=== PATIENT | female | born 1975 | race Caucasian/White ===

== ENCOUNTER → 2016-09-18 | Outpatient (CLI) | payer OTHER ==
[~2016-09-18] MED LIST: ALBU17AE3 IH; BENZ200C25 PO; CHOL4PAC16 PO; CITA20TA12 PO; DICY20TA33 PO; HYDR-34; HYDR30CR70 RC; INUL1TAB4 PO; L.AC1CAP6 PO; LOMOTIL; MECL25TA3 PO; MUSCLE RELAXER; ONDA4TAB8 PO; SCOP1PAT TD; WARF10TA PO; WARF7.5T PO; WRF5T
--- NOTE | 2016-09-18 17:53 | Diagnostic Imaging Report ---
EXAMINATION: Ultrasound pelvis DATE: September 18, 2016. INDICATION: 40-year-old female, lower abdominal pain. COMPARISON: CT February 20, 2009. TECHNIQUE: A sonogram of the pelvis was performed utilizing transabdominal and endovaginal approaches assessing toussaint-scale appearance, spectral Doppler analysis, and color Doppler flow. FINDINGS: The uterus measures 6.1 x 4.1 x 3.2 cm. No focal uterine masses are seen. The endometrium measures 0.7 cm in diameter. The right ovary measures 3.9 cm x 2.7 cm x 3.6 cm. The left ovary measures 3.1 cm x 2.9 cm x 2.7 cm. No adnexal lesion is seen. There is blood flow to both ovaries. No free pelvic fluid is demonstrated. IMPRESSION: 1. Unremarkable pelvic ultrasound. Dictated by: Dictated on workstation # [id number]
== END ==
LOC: RAD 16:50
PROVIDERS: ATTEND Nurse Practitioner Adult Health
DX: Z01.419 Encounter for gynecological examination (general) (routine) without abnormal findings (principal)
CPT/HCPCS: 76830; 76856

== ENCOUNTER → 2016-11-07 | Outpatient (CLI) | payer OTHER ==
--- NOTE | 2016-11-09 17:38 | Diagnostic Imaging Report ---
Bilateral screening mammogram The current study was also evaluated with a Computer Aided Detection (CAD) system. Indication: Screening. No current complaints stated on the questionnaire. COMPARISON: 11/24/15 Findings: The breasts are composed of scattered from densities. The there is no mass, architectural distortion or suspicious calcification. Allowing for technique and positional differences, no suspicious change is seen. IMPRESSION: No significant change. ACR BI-RADS Category 2: Benign findings. Result letter will be mailed to the patient. Note: At least 10% of breast cancer is not imaged by mammography. Dictated by: Dictated on workstation # [id number]
== END ==
LOC: RAD 13:25
PROVIDERS: ATTEND Nurse Practitioner Adult Health
DX: Z12.31 Encounter for screening mammogram for malignant neoplasm of breast (principal)
CPT/HCPCS: 77067

== ENCOUNTER 2017-01-21 21:24 | Emergency (ER) | payer OTHER ==
[~2017-01-21] VITALS: Ht 162.6 cm; Wt 108.9 kg
[2017-01-21] MEDS ORDERED: CLON0.1T PO (21:47)
[2017-01-21] MEDS ORDERED: NALT1TAB (21:47)
[2017-01-21] MEDS ORDERED: VERA120T6 (21:47)
[2017-01-21] MEDS ORDERED: KETOROLAC 30 MG/ML VIAL IVP STA (21:50)
[2017-01-21] MEDS ORDERED: NS IV 1000 ML 1,000 ML IV ONE (21:50)
--- NOTE | 2017-01-21 21:58 | ED Back Pain ---
General Chief Complaint: Back Problems Stated Complaint: AB PELVIC PAIN Nursing Triage Note: RIGHT FLANK/LOWER ABD. PAIN X1HR. VOMITTING X1. Nursing Sepsis Screen: No Definite Risk Source of Information: Patient, Family (daughter) Exam Limitations: No Limitations History of Present Illness Time Seen by Provider: 21:54 Initial Comments Patient uses EMS by private conveyance with chief complaint of right flank and back pain that started about 7:00 this evening. She says she feels that she has to have a bowel movement and goes urine but has hesitancy and difficulty. She feels that she can not pushes out. She did have one bowel movement earlier today. She has not taken anything for pain. 7 quite a bit of nausea. She's never had a kidney stone before. She is polycystic ovarian syndrome and endometriosis for which she is using the Depo-Provera shot. She is otherwise in state of good health try her 7:00 this evening. She is on warfarin for history of multiple PEs. Allergies and Home Medications Allergies Coded Allergies: No Known Drug Allergies (Verified , 02/21/09) Home Medications Cephalexin 500 Mg Capsule, 500 MG PO BID for 7 Days, #14 Ref 0 Prescribed by: DENISE URIARTE on 01/22/17 0124 Citalopram Hydrobromide 20 Mg Tablet, 20 MG PO DAILY, (Reported) Clonidine HCl 0.1 Mg Tablet, (Reported) Inulin/Chromium Picolinate 1 Each Tab.chew, 2 EACH PO BID, (Reported) L.acidoph & Paracasei,B.lactis 1 Each Capsule, 1 EACH PO DAILY, (Reported) Meclizine HCl 25 Mg Tablet, 1-2 TAB PO Q6H, #30 Prescribed by: CHRISTA WRIGHT on 09/11/151911 Naltrexone HCl/Bupropion HCl 1 Each Tablet.er, (Reported) Ondansetron 4 Mg Tab.rapdis, 4 MG PO Q4H, #10 Prescribed by: CHRISTA WRIGHT on 09/11/151909 Ondansetron 4 Mg Tab.rapdis, 4 MG PO Q4H PRN for NAUSEA/VOMITING-1ST LINE, #20 Ref 0 Prescribed by: DENISE URIARTE on 01/22/17 0131 Oxycodone HCl/Acetaminophen 1 Each Tablet, 1-2 EACH PO Q6H PRN for BREAKTHROUGH PAIN for 7 Days, #30 Ref 0 Prescribed by: DENISE URIARTE on 01/22/17 0124 Scopolamine 1 Each Patch.td72, 1 EACH TD Q72 HOURS, #3 Prescribed by: CHRISTA WIRGHT on 09/11/152 Tamsulosin HCl 0.4 Mg Cap, 0.4 MG PO HS for 7 Days, #7 Ref 0 Prescribed by: DENISE URIARTE on 01/22/17 0124 Verapamil HCl 120 Mg Tablet, (Reported) Warfarin Sodium 7.5 Mg Tablet, 7.5 MG PO UD, (Reported) Warfarin Sodium 10 Mg Tablet, 15 MG PO UD, (Reported) Constitutional: No chills, No diaphoresis EENTM: No ear pain, No eye pain Respiratory: No cough, No short of breath Cardiovascular: No chest pain, No palpitations Gastrointestinal: abdominal pain (RLQ), constipation, No diarrhea, nausea, vomiting Genitourinary: No discharge, dysuria : No (PCO S endometriosis) Musculoskeletal: see HPI, back pain, No joint pain Skin: No pruritus, No rash Psychiatric/Neurological: Denies Headache, Denies Numbness, Denies Paresthesia Past Wydotlq-Jquvai-Xxtafg Hx Patient Social History Alcohol Use: Denies Use Recreational Drug Use: No Smoking Status: Never a Smoker 2nd Hand Smoke Exposure: No Recent Foreign Travel: No Contact w/Someone Who Travel: No Recent Infectious Disease Expo: No Recent Hopitalizations: No Immunizations Up To Date Tetanus Booster (TDap): Unknown PED Vaccines UTD: Yes Seasonal Allergies Seasonal Allergies: Yes Surgeries History of Surgeries: Yes (ABDOMINOPLASTY; X 1) Surgeries: Adenoidectomy, Section, Tonsillectomy Respiratory History of Respiratory Disorde: Yes (P.E. 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 Genitourinary History of Genitourinary Disor: No Gastrointestinal History of Gastrointestinal Di: Yes Gastrointestinal Disorders: Irritable Bowel Musculoskeletal History of Musculoskeletal Dis: No Endocrine History of Endocrine Disorders: Yes (OBESITY) HEENT History of HEENT Disorders: No Cancer History of Cancer: No Psychosocial History of Psychiatric Problem: Yes Behavioral Health Disorders: Anxiety Integumentary History of Skin or Integumenta: No Blood Transfusions History of Blood Disorders: No Physical Exam Vital Signs Vital Sign - Last 12Hours 01/21/17 01/22/17 21:47 01:03 Temp 97.6 Pulse 70 Resp 24 B/P (MAP) 191/106 Pulse Ox 100 O2 Delivery Room Air FiO2 99 Capillary Refill : Less Than 3 Seconds General Appearance: WD/WN, Moderate Distress HEENT: PERRL/EOMI, Pharynx Normal Cardiovascular: Regular Rate, Rhythm, No Edema Respiratory: Lungs Clear, Normal Breath Sounds Peripheral Pulses: 2+ Dorsalis Pedis (R), 2+ Left Dors-Pedis (L) Gastrointestinal: Normal Bowel Sounds, No Organomegaly, No Pulsatile Mass, Non Tender, Soft Back: Normal Inspection, CVA Tenderness (R) Extremity: Normal Capillary Refill, No Pedal Edema Neurologic/Psychiatric: Alert, Oriented x3 Skin: Normal Color, Warm/Dry Progress/Results/Core Measures Results/Orders My Orders Orders - DENISE URIARTE Urine Bedside (01/21/17 21:50) Ct Abd/Pelvis Wo(Kidney Stone) (01/21/17 21:50) Abdomen/Kub 1view (01/21/17 21:50) Ketorolac Injection (Toradol Injection) (01/21/17 21:50) Saline Lock/Iv-Start (01/21/17 21:50) Ns Iv 1000 Ml (Sodium Chloride 0.9%) (01/21/17 21:50) Ondansetron Injection (Zofran Injectio (01/21/17 22:00) Fentanyl Injection (Sublimaze Injection (01/21/17 22:00) Fentanyl Injection (Sublimaze Injection (01/21/17 22:30) Ondansetron Injection (Zofran Injectio (01/21/17 22:30) Fentanyl Injection (Sublimaze Injection (01/21/17 23:30) Oxycodone/Acet 10/325mg Tablet (Percocet (01/21/17 23:45) Promethazine Tablet (Phenergan Tablet) (01/21/17 23:45) Alfuzosin Tablet (Uroxatral Tablet) (01/21/17 23:45) Ondansetron Injection (Zofran Injectio (01/22/17 00:15) Promethazine Injection (Phenergan Injec (01/22/17 00:15) Saline Lock/Iv-Start (01/22/17 00:15) Ns Iv 500 Ml (Sodium Chloride 0.9%) (01/22/17 00:15) Medications Given in ED Current Medications Medications Dose Ordered Sig/John Route Start Time Stop Time Status Last Admin Dose Admin Fentanyl Citrate 50 mcg ONCE ONCE IVP 01/21/17 22:00 01/21/17 22:01 DC 01/21/17 22:02 50 MCG Fentanyl Citrate 50 mcg ONCE ONCE IVP 01/21/17 22:30 01/21/17 22:31 DC 01/21/17 22:40 50 MCG Fentanyl Citrate 50 mcg ONCE ONCE IVP 01/21/17 23:30 01/21/17 23:31 DC 01/21/17 23:29 50 MCG Ondansetron HCl 4 mg ONCE ONCE IVP 01/21/17 22:00 01/21/17 22:01 DC 01/21/17 22:01 4 MG Ondansetron HCl 4 mg ONCE ONCE IVP 01/21/17 22:30 01/21/17 22:31 DC 01/21/17 22:25 4 MG Ondansetron HCl 8 mg ONCE ONCE IVP 01/22/17 00:15 01/22/17 00:17 DC 01/22/17 00:31 8 MG Oxycodone/ Acetaminophen 2 tab ONCE ONCE PO 01/21/17 23:45 01/21/17 23:46 DC 01/21/17 23:54 2 TAB Promethazine HCl 25 mg ONCE ONCE IVP 01/22/17 00:15 01/22/17 00:17 DC 01/22/17 00:31 25 MG Promethazine HCl 25 mg ONCE ONCE PO 01/21/17 23:45 01/21/17 23:46 DC 01/21/17 23:54 25 MG Sodium Chloride 500 ml @ 0 mls/hr Q0M ONCE IV 01/22/17 00:15 01/22/17 00:17 DC 01/22/17 00:30 0 MLS/HR Sodium Chloride 1,000 ml @ 0 mls/hr Q0M ONCE IV 01/21/17 21:50 01/21/17 21:55 DC 01/21/17 22:02 0 MLS/HR Vital Signs/I&O Vital Sign - Last 12Hours 01/21/17 01/21/17 01/22/17 01/22/17 21:47 22:02 01:03 01:31 Temp 97.6 97.6 97.1 97.9 Pulse 70 57 61 Resp 24 16 18 B/P (MAP) 191/106 133/69 Pulse Ox 100 99 O2 Delivery Room Air Room Air Room Air FiO2 99 Blood Pressure Mean: 134 Diagnostic Imaging Diagonstic Imaging: CT Plain Films/CT/US/NM/MRI: abdomen, pelvis Comments 3 mm stone in the right distal ureter vesicle junction versus a more dependent aspect of the urinary bladder with associated right mild hydroureter or nephrosis and minimal perinephric fat stranding. Incidentally there is some hyperdense material seen and small bowel of unknown significance. Her vitals lobe of the liver. Remaining solid organs are otherwise unremarkable and a normal appendix is seen. Postoperative changes suggested in the anterior abdominal wall on the left lower quadrant Reviewed: Reviewed by Me Departure Impression Impression: Primary Impression: Kidney stone Disposition: HOME, SELF-CARE Condition: Improved Departure-Patient Inst. Decision time for Depature: 01:19 Referrals: APRIL LOPEZ DO (PCP) Primary Care Physician JANE BAUTISTA (Family) Primary Care Physician Patient Instructions: Kidney Stones (DC) Add. Discharge Instructions: Drink lots of water. Caffeine is okay. Take one tablet of the tamsulosin/Flomax every night by mouth until you pass the stone. Take the antibiotics by mouth twice a day until you pass the stone. If you're having pain you can use Tylenol or ibuprofen and in addition you should use the Percocet 1-2 tablets every 6 hours as needed to control your pain. If you're having nausea you can take one tablet of the Zofran and place under your tongue allowed to dissolve every 4 hours as needed to control your nausea. If you're not able to pass the stone and catching in the strainer by Sunday you should call Dr. Wilkins , urologist at [phone]. Strain your urine every time you go to try and catch the stone. If you For the stone take it your doctor's office and they can test it find out what kind it is so that you can figure out how to avoid the stones in the future. It is not unusual to have some pain and pink colored urine for up to 2-3 days after passing the stone as you're ureters heal. While you're using opiates such as Percocet you should also take a laxative such as MiraLAX daily to keep herself regular. Do not drive or operate heavy machinery while under the influence of opiates. Do not combine opiates with alcohol. All discharge instructions reviewed with patient and/or family. Voiced understanding. Scripts Ondansetron (Zofran Odt) 4 Mg Tab.rapdis 4 MG PO Q4H Y for NAUSEA/VOMITING-1ST LINE, #20 TAB 0 Refills Prov: DENISE URIARTE 01/22/17 Oxycodone HCl/Acetaminophen (Percocet 10-325 mg Tablet) 1 Each Tablet 1-2 EACH PO Q6H Y for BREAKTHROUGH PAIN for 7 Days, #30 TAB 0 Refills Prov: DENISE URIARTE 01/22/17 Tamsulosin HCl (Flomax) 0.4 Mg Cap 0.4 MG PO HS for 7 Days, #7 CAP 0 Refills Prov: DENISE URIARTE 01/22/17 Cephalexin (Keflex) 500 Mg Capsule 500 MG PO BID for 7 Days, #14 CAP 0 Refills Prov: DENISE URIARTE 01/22/17 Copy Copies To 1: APRIL LOPEZ TITUS J Jan 21, 2017 21:57
[2017-01-21] MEDS ORDERED: fentaNYL INJECTION 100 MCG/2 ML AMP IVP ONE ×3 (22:00→23:30)
[2017-01-21] MEDS ORDERED: ONDANSETRON 4 MG/2 ML (SDV) Z0FRAN IVP ONE ×2 (22:00→22:30)
[2017-01-21] MEDS ORDERED: PROMETHAZINE 25 MG (PHENERGAN) TAB PO ONE (23:45)
[2017-01-21] MEDS ORDERED: oxyCODONE/APAP 10/325MG (PERCOCET 10) TABLET PO ONE (23:45)
[2017-01-21] MEDS ORDERED: ALFUZOSIN HCL 10 MG TAB (UROXATRAL) PO SCH (23:45)
[2017-01-22] MEDS ORDERED: ONDANSETRON 4 MG/2 ML (SDV) Z0FRAN IVP ONE (00:15)
[2017-01-22] MEDS ORDERED: PROMETHAZINE INJ 25 MG/ML (PHENERGAN) AMP IVP ONE (00:15)
[2017-01-22] MEDS ORDERED: NS IV 500 ML 500 ML IV ONE (00:15)
[2017-01-22] MEDS ORDERED: OXYC-202 PO (01:24)
[2017-01-22] MEDS ORDERED: CEPH-507 PO (01:24)
[2017-01-22] MEDS ORDERED: TAMS0.4C98 PO (01:24)
[2017-01-22 01:31] VITALS: BP 130/65
[2017-01-22] MEDS ORDERED: ONDA4TAB8 PO (01:31)
--- NOTE | 2017-01-22 08:08 | Diagnostic Imaging Report ---
INDICATION: Right lower quadrant abdominal pain. COMPARISON: CT from earlier same day. FINDINGS: 2 supine radiographic views of the abdomen were obtained and demonstrate nondistended loops of small bowel. There is no large collection of free intraperitoneal air within the abdomen. Mild air and stool are noted scattered throughout the colon. Multiple calcifications are seen in the left shira abdomen are shown to be present within the small bowel when compared to previous CT. No unexpected radiopaque foreign bodies are seen. Included portions of the lung bases are clear. Bony structures show no gross acute abnormalities. IMPRESSION: Nonobstructive small bowel gas pattern. Dictated by: Dictated on workstation # [id number]
--- NOTE | 2017-01-22 08:26 | Diagnostic Imaging Report ---
PROCEDURE: CT urinary tract, rule out kidney stone. TECHNIQUE: Multiple contiguous axial images were obtained through the abdomen and pelvis without the use of intravenous contrast. INDICATION: Right lower quadrant pain. FINDINGS: There is hydronephrosis of the right collecting system with dilated ureter. There is a 3 mm stone in the distal right ureter at the uterovesical junction. The bladder is decompressed. There are no other calculi noted. Left kidney and ureter appear normal. No perinephric fluid. The lung bases are clear. The liver appears normal. Gallbladder and bile ducts are normal. The pancreas and spleen are normal. No evidence of aortic aneurysm. No intra-abdominal adenopathy. The appendix is visualized and normal. There is no free fluid or free air. Left lower anterior abdomen shows approximately 3.5 cm mixed density fatty lesion beneath the skin likely representing focal fat necrosis from previous surgery. Clinical correlation. IMPRESSION: 1. Hydronephrosis secondary to a partially obstructing 3 mm stone in the distal right ureter. 2. Complex fatty mass measuring 3.5 cm left lower abdomen likely representing fat necrosis from previous surgery. Clinical correlation. These findings are concordant with the report. Dictated by: Dictated on workstation # [id number]
--- OUTSIDE RECORDS SUMMARY | 2017-01-22 12:22 | XMS REPORT ---
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 Active Problem Anxiety associated with depression F41.8 Active Problem History of colon polyps Z86.010 Active Problem Mixed hyperlipidemia E78.2 Active Problem HTN (hypertension) I10 Active Problem Gastroesophageal reflux disease without esophagitis K21.9 Active Problem Irritable bowel syndrome with diarrhea K58.0 Active Problem PCOS (polycystic ovarian syndrome) E28.2 Active Problem Environmental allergies Z91.09 Active Problem Hx pulmonary embolism Z86.711 Active Medications Medication Code System Code Instructions Start Date End Date Status Dosage Flagyl [facility] [address]-32 500 MG Orally every 8 hrs Mar 08, 2016 Mar 18, 2016 1 tablet Zantac 75 [facility] [address]-23 75 MG Orally Twice a day Mar 08, 2016 1 tablet as needed Depo-Provera [facility] [address]-89 150 MG/ML Intramuscular 1 ml Lomotil [facility] [address]-76 2.5-0.025 MG Orally Four times a day as needed, stop if no improvement in 48 hours Feb 11, 2016 1-2 tablet as needed max of 6 Anti-Diarrheal [facility] [address]-54 2 MG Orally 8 time(s) a day 1 tablet Results No Known Results Summary Purpose [employer] Submission
--- OUTSIDE RECORDS SUMMARY | 2017-01-22 12:22 | XMS REPORT ---
Author Author JANE BAUTISTA [facility] [employer] Address Unknown Phone Unavailable Care Team Providers Care Laboratory Scientist Name Role Phone JANE BAUTISTA CP Unavailable Allergies No Known Allergies Problems Problem Type Condition Code Onset Dates Condition Status Problem Anxiety associated with depression F41.8 Active Problem Irritable bowel syndrome with diarrhea K58.0 Active Problem PCOS (polycystic ovarian syndrome) E28.2 Active Problem Hx pulmonary embolism Z86.711 Active Problem Irregular heart rate I49.9 Active Problem History of colon polyps Z86.010 Active Problem Obesity due to excess calories, unspecified obesity severity E66.09 Active 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
--- OUTSIDE RECORDS SUMMARY | 2017-01-22 12:22 | XMS REPORT ---
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
--- OUTSIDE RECORDS SUMMARY | 2017-01-22 12:22 | XMS REPORT ---
Author Author JOY DE GUZMAN [employer] Address Unknown Phone Unavailable Care Team Providers Care Enterprise Software Developer Name Role Phone JOY DE GUZMAN CP Unavailable Allergies, Adverse Reactions, Alerts Substance Reaction Event Type N.K.D.A. Info Not Available Non Drug Allergy Problems Problem Type Condition Code Onset Dates Condition Status Assessment Hx pulmonary embolism Z86.711 Active Problem Anxiety associated with depression F41.8 Active Assessment correction current use of anticoagulant therapy Z79.01 Active Problem Irritable bowel syndrome with diarrhea K58.0 Active Problem PCOS (polycystic ovarian syndrome) E28.2 Active Problem Hx pulmonary embolism Z86.711 Active Problem Irregular heart rate I49.9 Active Problem History of colon polyps Z86.010 Active Problem Obesity due to excess calories, unspecified obesity severity E66.09 Active 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 Active Assessment Irregular heart rate I49.9 Active Assessment Obesity due to excess calories, unspecified obesity severity E66.09 Active Assessment Anxiety associated with depression F41.8 Active Assessment PCOS (polycystic ovarian syndrome) E28.2 Active Assessment History of colon polyps Z86.010 Active Assessment Irritable bowel syndrome with diarrhea K58.0 Active Medications Medication Code System Code Instructions Start Date End Date Status Dosage Depo-Provera [facility] [address]-89 150 MG/ML Intramuscular 1 ml Coumadin [facility] [address]-31 7.5 MG Orally 2 Tablets per day on Sunday, Sunday , Sunday, Sunday and Sunday. One tablet per day on Tuesdays and . 2 tablets Citalopram Hydrobromide [facility] [address]-78 20 MG Orally Once a day 1 tablet Clonidine HCl [facility] [address]-07 0.1 MG Orally 2 times a day May 25, 2015 1 tablet Rifaximin [facility] [address]-79 550 MG Orally Three times a day May 25, 2015 Jul 06, 2015 1 tablet Metformin HCl [facility] [address]-25 850 MG Orally Once a day 1 tablet with a meal Procedures Procedure Coding System Code Date Office Visit, New Pt., Level 4 CPT-4 48504 May 25, 2015 PROTHROMBIN TIME CPT-4 47333 May 25, 2015 Vital Signs Date/Time: May 25, 2015 Temperature 97.4 F Weight 242.7 lbs Height 64 in BMI 41.65 Index Blood Pressure Diastolic 88 mmHg Blood Pressure Systolic 128 mmHg Cardiac Monitoring Heart Rate 72 bpm Results Name Result Date Reference Range Unit Abnormality Flag INR (IN HOUSE) ----Exp date 20150525 ----INR 3.2 20150525 1.10 - 3.30 ----PREVIOUS INR N/A [id number] ----CURRENT COUMADIN DOSE 15mg S,M,W,F,Sat. 7mg ,[id number] ----Lot # [id number] Summary Purpose [employer] Submission
--- OUTSIDE RECORDS SUMMARY | 2017-01-22 12:22 | XMS REPORT ---
Author Author JANE BAUTISTA Organization [facility] Address [address] [place] [address] Care Team Providers Care Licensed Loan Officer Assistant Name Role Phone VIRGEN BAUTISTAE Unavailable PROBLEMS Type Condition ICD9-CM Code NGI00-HL Code Onset Dates Condition Status SNOMED Code Problem Hx pulmonary embolism Z86.711 Active 300962953 Problem Anxiety associated with depression F41.8 Active 078397865 Problem Obesity due to excess calories, unspecified obesity severity E66.09 Active 057132588 Problem Irritable bowel syndrome with diarrhea K58.0 Active 527827892 Problem Irregular heart rate I49.9 Active 358987377 Problem History of colon polyps Z86.010 Active 376068911 Problem Gastroesophageal reflux disease without esophagitis K21.9 Active 667574462 Problem Mixed hyperlipidemia E78.2 Active 221927331 Problem PCOS (polycystic ovarian syndrome) E28.2 Active 48798790 Problem Hx of shelter use of blood 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 Unknown Non Drug Allergy May, Unknown SOCIAL HISTORY No smoking Hx information available PLAN OF CARE Activity Details Follow Up 4 Weeks Reason:weight palpitations VITAL SIGNS Height 64 in 2016-05-30 Weight 225.5 lbs 2016-05-30 Temperature 98.3 degrees Fahrenheit 2016-05-30 Heart Rate 88 bpm 2016-05-30 Respiratory Rate 18 2016-05-30 BMI 38.70 kg/m2 2016-05-30 Blood pressure systolic 130 mmHg 2016-05-30 Blood pressure diastolic 92 mmHg 2016-05-30 MEDICATIONS Medication Instructions Dosage Frequency Start Date End Date Duration Status Coumadin 7.5 MG Orally M, W,F,Sat and sun, and 1 tablet on and 2 tablets Active Verapamil HCl 120 MG Orally Once a day 1 tablet 24h Active Depo-Provera 150 MG/ML Intramuscular every 90 days every 90 days May, 1 dose Active Citalopram Hydrobromide 20 mg Orally Once a day 1 tablet 24h 30 days Active Questran Light 4 GM/DOSE Orally Daiy PRN one dose 30 days Active Zantac 75 75 MG Orally Twice a day 1 tablet as needed 12h 12 Feb, 2016 Active Metamucil Fiber Singles 4 capsules 24h 30 Apr, 2015 Active Probiotic Active Atorvastatin Calcium 10 mg Orally Once a day 1 tablet 24h 20 Sep, 2015 30 days Active Clonidine HCl 0.1 MG Orally 2 times a day 1 tablet 12h 29 Apr, 2015 60 days Active Anti-Diarrheal 2 MG Orally 8 time(s) a day 1 tablet Active RESULTS Name Result Date Reference Range INR (IN HOUSE) 2016-05-30 INR 2.6 1.10 - 3.30 PREVIOUS INR 2.1 CURRENT COUMADIN DOSE same NEW COUMADIN DOSE Lot # [id number] Exp date 03/2017 PROCEDURES Procedure Date Ordered Related Diagnosis Body Site EKG, TRACING (IN-HOUSE) 2016-05-30 N/A PROTHROMBIN TIME May 30, 2016 Office Visit, Est Pt., Level 4 May 30, 2016 ELECTROCARDIOGRAM, TRACING May 30, 2016 IMMUNIZATIONS No Known Immunizations
--- OUTSIDE RECORDS SUMMARY | 2017-01-22 12:23 | XMS REPORT ---
Author Author JANE BAUTISTA [facility] eClinicalWorks Address Unknown Phone Unavailable Care Team Providers Care Beauty Operator Apprentice Name Role Phone JANE BAUTISTA CP Unavailable Allergies, Adverse Reactions, Alerts Substance Reaction Event Type N.K.D.A. 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 Active Problem Mixed hyperlipidemia E78.2 Active Problem HTN (hypertension) I10 Active Problem Gastroesophageal reflux disease without esophagitis K21.9 Active Problem Irritable bowel syndrome with diarrhea K58.0 Active Problem PCOS (polycystic ovarian syndrome) E28.2 Active Problem Environmental allergies Z91.09 Active Problem Hx pulmonary embolism Z86.711 Active Assessment Obesity due to excess calories, unspecified obesity severity E66.09 Active Assessment HTN (hypertension) I10 Active Assessment Hx of usp use of blood 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 Active Assessment Hx pulmonary embolism Z86.711 Active Assessment Anxiety associated with depression F41.8 Active Problem Anxiety associated with depression F41.8 Active Assessment Irregular heart rate I49.9 Active Problem History of colon polyps Z86.010 Active Medications Medication Code System Code Instructions Start Date End Date Status Dosage Contrave [facility] [address]-52 8-90 MG Orally Twice a day Feb 24, 2016Apr one daily x 7 am, then one bid x 7, then two in the am and one at hs , them 2 tablets bid Atorvastatin Calcium [facility] [address]-33 10 mg Orally Once a day October 15, 2015 1 tablet Coumadin [facility] [address]-66 7.5 MG Orally M, W,F,Sat and sun, and 1 tablet on and 2 tablets Zantac 75 [facility] [address]-35 75 MG Orally Twice a day Mar 08, 2016 1 tablet as needed Depo-Provera [facility] [address]-90 150 MG/ML Intramuscular 1 ml Clonidine HCl [facility] [address]-64 0.1 MG Orally 2 times a day May 25, 2015 1 tablet Citalopram Hydrobromide [facility] [address]-01 20 mg Orally Once a day 1 tablet Flagyl [facility] [address]-73 500 MG Orally every 8 hrs Mar 08, 2016 Mar 18, 2016 1 tablet Verapamil HCl [facility] 15360938886 120 MG Orally Once a day 1 tablet Procedures Procedure Coding System Code Date Office Visit, Est Pt., Level 4 CPT-4 57802 Mar 17, 2016 Vital Signs Date/Time: Mar 17, 2016 Cardiac Monitoring Heart Rate 72 bpm Weight 219.4 lbs Height 64 in BMI 37.66 Index Blood Pressure Diastolic 97 mmHg Blood Pressure Systolic 124 mmHg Results No Known Results Summary Purpose eClinicalWorks Submission
--- OUTSIDE RECORDS SUMMARY | 2017-01-22 12:23 | XMS REPORT ---
Author Author JANE BAUTISTA [facility] eClinicalWorks Address Unknown Phone Unavailable Care Team Providers Care Bacon Skin Lifter Name Role Phone JANE BAUTISTA CP Unavailable Allergies No Known Allergies Problems Problem Type Condition Code Onset Dates Condition Status Problem History of colon polyps Z86.010 Active Problem Hx of alf use of blood 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 Active Problem Irregular heart rate I49.9 Active Problem Anxiety associated with depression F41.8 Active Problem HTN (hypertension) I10 Active Problem Environmental allergies Z91.09 Active Problem Mixed hyperlipidemia E78.2 Active Problem PCOS (polycystic ovarian syndrome) E28.2 Active Problem Obesity due to excess calories, unspecified obesity severity E66.09 Active Problem Hx pulmonary embolism Z86.711 Active Problem Irritable bowel syndrome with diarrhea K58.0 Active Medications Medication Code System Code Instructions Start Date End Date Status Dosage Colestid [facility] [address]-31 1 GM Orally three times daily Feb 29, 2016 1 tablets Results No Known Results Summary Purpose eClinicalWorks Submission
--- OUTSIDE RECORDS SUMMARY | 2017-01-22 12:23 | XMS REPORT ---
Author Author JANE BAUTISTA [facility] eClinicalWorks Address Unknown Phone Unavailable Care Team Providers Care Landscape Artist Name Role Phone JANE BAUTISTA CP Unavailable Allergies, Adverse Reactions, Alerts Substance Reaction Event Type N.K.D.A. 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 Active Problem Irregular heart rate I49.9 Active Problem HTN (hypertension) I10 Active Problem Environmental allergies Z91.09 Active Problem Mixed hyperlipidemia E78.2 Active Problem PCOS (polycystic ovarian syndrome) E28.2 Active Problem Obesity due to excess calories, unspecified obesity severity E66.09 Active Problem Hx pulmonary embolism Z86.711 Active Problem Irritable bowel syndrome with diarrhea K58.0 Active Assessment Irregular heart rate I49.9 Active Assessment HTN (hypertension) I10 Active Assessment Mixed hyperlipidemia E78.2 Active Assessment Obesity due to excess calories, unspecified obesity severity E66.09 Active Assessment Irritable bowel syndrome with diarrhea K58.0 Active Assessment Anxiety associated with depression F41.8 Active Assessment Hx pulmonary embolism Z86.711 Active Assessment Hx of [facility] use of blood 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 Active Problem Anxiety associated with depression F41.8 Active Medications Medication Code System Code Instructions Start Date End Date Status Dosage Verapamil HCl [facility] [address]-09 120 MG Orally Once a day November 02, 2015 1 tablet Bydureon [facility] [address]-00 2 MG Subcutaneous once per week October 13, 2015 as directed Atorvastatin Calcium [facility] [address]-69 10 mg Orally Once a day October 15, 2015 1 tablet Metamucil Fiber Singles [facility] 0 daily May 26, 2015 4 capsules Probiotic [facility] 8[address]59-[address]43 Orally not defined Depo-Provera [facility] [address]-54 150 MG/ML Intramuscular 1 ml Citalopram Hydrobromide [facility] 18106717612 20 mg Orally Once a day 1 tablet Lisinopril [facility] [address]-97 10 mg Orally Once a day September 13, 2015 1 tablet Clonidine HCl [facility] [address]-40 0.1 MG Orally 2 times a day May 25, 2015 1 tablet Coumadin [facility] [address]-85 7.5 MG Orally M, W,F,Sat and sun, and 1 tablet on and 2 tablets Procedures Procedure Coding System Code Date Office Visit, Est Pt., Level 4 CPT-4 30012 December 22, 2015 PROTHROMBIN TIME CPT-4 43640 December 22, 2015 Vital Signs Date/Time: December 22, 2015 Cardiac Monitoring Heart Rate 88 bpm Weight 225.8 lbs Height 64 in BMI 38.75 Index Blood Pressure Diastolic 80 mmHg Blood Pressure Systolic 112 mmHg Results No Known Results Summary Purpose eClinicalWorks Submission
--- OUTSIDE RECORDS SUMMARY | 2017-01-22 12:23 | XMS REPORT ---
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
--- OUTSIDE RECORDS SUMMARY | 2017-01-22 12:23 | XMS REPORT ---
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
--- OUTSIDE RECORDS SUMMARY | 2017-01-22 12:23 | XMS REPORT ---
Author Author JANE BAUTISTA [facility] eClinicalWorks Address Unknown Phone Unavailable Care Team Providers Care Hotel Engineer Name Role Phone JANE BAUTISTA CP Unavailable Allergies, Adverse Reactions, Alerts Substance Reaction Event Type N.K.D.A. 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 Active Problem Mixed hyperlipidemia E78.2 Active Problem HTN (hypertension) I10 Active Problem Gastroesophageal reflux disease without esophagitis K21.9 Active Problem Irritable bowel syndrome with diarrhea K58.0 Active Problem PCOS (polycystic ovarian syndrome) E28.2 Active Problem Environmental allergies Z91.09 Active Problem Hx pulmonary embolism Z86.711 Active Assessment Gastroesophageal reflux disease without esophagitis K21.9 Active Assessment Irritable bowel syndrome with diarrhea K58.0 Active Problem Anxiety associated with depression F41.8 Active Problem History of colon polyps Z86.010 Active Medications Medication Code System Code Instructions Start Date End Date Status Dosage Atorvastatin Calcium [facility] [address]-76 10 mg Orally Once a day October 15, 2015 1 tablet Zantac 75 [facility] [address]-25 75 MG Orally Twice a day Mar 08, 2016 1 tablet as needed Probiotic [facility] [address] Orally not defined Colestid [facility] [address]-35 1 GM Orally three times daily Feb 29, 2016 1 tablets Anti-Diarrheal [facility] [address]-38 2 MG Orally 8 time(s) a day 1 tablet Coumadin [facility] [address]-48 7.5 MG Orally M, W,F,Sat and sun, and 1 tablet on and 2 tablets Verapamil HCl [facility] 97744628504 120 MG Orally Once a day 1 tablet Clonidine HCl [facility] [address]-11 0.1 MG Orally 2 times a day May 25, 2015 1 tablet Metamucil Fiber Singles [facility] 0 daily May 26, 2015 4 capsules Flagyl [facility] [address]-90 500 MG Orally every 8 hrs Mar 08, 2016 Mar 18, 2016 1 tablet Questran Light [facility] [address]-68 4 GM/DOSE Orally Daiy PRN 1 null Contrave [facility] [address]-42 8-90 MG Orally Twice a day Feb 24, 2016Apr one daily x 7 am, then one bid x 7, then two in the am and one at hs , them 2 tablets bid Depo-Provera [facility] [address]-71 150 MG/ML Intramuscular 1 ml Citalopram Hydrobromide [facility] [address]-73 20 mg Orally Once a day 1 tablet Procedures Procedure Coding System Code Date Office Visit, Est Pt., Level 3 CPT-4 76019 Mar 08, 2016 Vital Signs Date/Time: Mar 08, 2016 Cardiac Monitoring Heart Rate 78 bpm Weight 221 lbs Height 64 in BMI 37.93 Index Blood Pressure Diastolic 80 mmHg Blood Pressure Systolic 120 mmHg Results No Known Results Summary Purpose eClinicalWorks Submission
--- OUTSIDE RECORDS SUMMARY | 2017-01-22 12:23 | XMS REPORT ---
Author Author JANE BAUTISTA [facility] eClinicalWorks Address Unknown Phone Unavailable Care Team Providers Care Chief Of Safety And Protection Name Role Phone JANE BAUTISTA CP Unavailable Allergies, Adverse Reactions, Alerts Substance Reaction Event Type N.K.D.A. 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 Active Problem Obesity E66.9 Active Problem IBS (irritable bowel syndrome) K58.9 Active Problem HTN (hypertension) I10 Active Problem Irritable bowel syndrome with diarrhea K58.0 Active Problem PCOS (polycystic ovarian syndrome) E28.2 Active Problem Environmental allergies Z91.09 Active Problem Hx pulmonary embolism Z86.711 Active Assessment Irritable bowel syndrome with diarrhea K58.0 Active Assessment Anxiety associated with depression F41.8 Active Assessment Obesity E66.9 Active Assessment Hx of intermediate use of blood 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 Active Assessment Hx pulmonary embolism Z86.711 Active Assessment HTN (hypertension) I10 Active Assessment Irregular heart rate I49.9 Active Problem Anxiety associated with depression F41.8 Active Assessment PCOS (polycystic ovarian syndrome) E28.2 Active Problem History of colon polyps Z86.010 Active Medications Medication Code System Code Instructions Start Date End Date Status Dosage Coumadin [facility] [address]-99 7.5 MG Orally on and and 15 mg M, W,, Sat and sun 2 tablets Citalopram Hydrobromide [facility] [address]-27 20 mg Orally Once a day 1 tablet Lisinopril [facility] [address]-13 10 mg Orally Once a day September 13, 2015 1 tablet Depo-Provera [facility] [address]-97 150 MG/ML Intramuscular 1 ml Clonidine HCl [facility] [address]-86 0.1 MG Orally 2 times a day May 25, 2015 1 tablet Meclizine HCl [facility] [address]-17 25 MG Orally Once a day 2 tablets as needed Metamucil Fiber Singles [place] 0 daily May 26, 2015 4 capsules Probiotic [facility] [address]679 Orally not defined Procedures Procedure Coding System Code Date Office Visit, Est Pt., Level 4 CPT-4 30871 September 13, 2015 PROTHROMBIN TIME CPT-4 36156 September 13, 2015 Vital Signs Date/Time: September 13, 2015 Temperature 98.1 F Weight 246.3 lbs Height 64 in BMI 42.27 Index Blood Pressure Diastolic 98 mmHg Blood Pressure Systolic 128 mmHg Cardiac Monitoring Heart Rate 76 bpm Results Name Result Date Reference Range Unit Abnormality Flag INR (IN HOUSE) ----Exp date [id number] ----INR 2.6 [id number] 1.10 - 3.30 ----PREVIOUS INR 3.0 [id number] ----CURRENT COUMADIN DOSE 15 mg sat,sun, mon, wed, fri 7.5 tue and [id number] ----Lot # [id number] Summary Purpose eClinicalWorks Submission
--- OUTSIDE RECORDS SUMMARY | 2017-01-22 12:24 | XMS REPORT ---
Author Author OSMIN EDWARD Organization [facility] Address [address] [place] [address] Care Team Providers Care Child Attendant Name Role Phone OSMIN EDWARD Unavailable PROBLEMS Type Condition ICD9-CM Code [id number] Code Onset Dates Condition Status SNOMED Code Problem Irregular heart rate I49.9 Active 623606737 Problem Obesity due to excess calories, unspecified obesity severity E66.09 Active 821472519 Problem Hx of retirement use of blood 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 Active 513405547 Assessment Diarrhea, unspecified type R19.7 16 Jan, 2016 Active 81344237 Problem Anxiety associated with depression F41.8 Active 653109973 Problem History of colon polyps Z86.010 Active 294346821 Problem Mixed hyperlipidemia E78.2 Active 248581907 Problem HTN (hypertension) I10 Active 60200320 Problem Irritable bowel syndrome with diarrhea K58.0 Active 734340341 Problem PCOS (polycystic ovarian syndrome) E28.2 Active 98321771 Problem Environmental allergies Z91.09 Active 054866052 Problem Hx pulmonary embolism Z86.711 Active 980116368 ALLERGIES Substance Reaction Event Type Date Status N.K.D.A. Unknown Non Drug Allergy Jan, Unknown SOCIAL HISTORY No smoking Hx information available PLAN OF CARE Activity Details Pending Test CULTURE, STOOL Pending Test STOOL (O & P) Pending Test STOOL (C-DIFF) prn,Reason: VITAL SIGNS Height 64 in 2016-02-11 Weight 220.0 lbs 2016-02-11 Heart Rate 100 bpm 2016-02-11 Respiratory Rate 20 2016-02-11 BMI 37.76 kg/m2 2016-02-11 Blood pressure systolic 110 mmHg 2016-02-11 Blood pressure diastolic 78 mmHg 2016-02-11 MEDICATIONS Medication Instructions Dosage Frequency Start Date End Date Duration Status Atorvastatin Calcium 10 mg Orally Once a day 1 tablet 24h September, Active Depo-Provera 150 MG/ML 1 ml Active Lisinopril 10 mg Orally Once a day 1 tablet 24h Aug, 30 day(s) Active Clonidine HCl 0.1 MG Orally 2 times a day 1 tablet 12h 29 Apr, 2015 Active Citalopram Hydrobromide 20 mg Orally Once a day 1 tablet 24h 30 Active Verapamil HCl 120 MG Orally Once a day 1 tablet 24h 30 Active Bydureon 2 MG Subcutaneous once per week as directed September, Active Probiotic Active Metamucil Fiber Singles 4 capsules 24h 30 Apr, 2015 Active Questran Light 4 GM/DOSE Orally Daiy PRN 1 null Active Coumadin 7.5 MG Orally M, W,F,Sat and sun, and 1 tablet on and 2 tablets Active Lomotil 2.5-0.025 MG Orally Four times a day as needed, stop if no improvement in 48 hours 1-2 tablet as needed Jan, Jan, 3 days Active Anti-Diarrheal 2 MG Orally 8 time(s) a day 1 tablet Active RESULTS Name Result Date Reference Range CULTURE, STOOL 2016-02-11 Request Problem Result 1 Result 1 Result 2 Campylobacter Culture Salmonella/Shigella Screen . E coli Shiga Toxin EIA . . STOOL (O & P) 2016-02-12 Please note Request Problem Request Problem Result 1 Ova + Parasite Exam STOOL (C-DIFF) 2016-02-11 Request Problem Request Problem C difficile Toxin Gene ITZEL PROCEDURES Procedure Date Ordered Related Diagnosis Body Site FECES CULTURE, BACTERIA Feb 11, 2016 OVA AND PARASITES SMEARS Feb 11, 2016 C DIFF AMPLIFIED PROBE Feb 11, 2016 SMEAR, COMPLEX STAIN Feb 11, 2016 Office Visit, Est Pt., Level 3 Feb 11, 2016 IMMUNIZATIONS No Known Immunizations
[2017-01-23] MEDS ORDERED: ATOR10TA66 PO (11:08)
== END 2017-01-22 01:26 | disposition home or self-care (01) ==
LOC: EDUNIT# 21:24 → ER 21:25
DX: N20.0 Calculus of kidney (principal); F41.9 Anxiety disorder, unspecified; E66.9 Obesity, unspecified; Z87.19 Personal history of other diseases of the digestive system; Z90.710 Acquired absence of both cervix and uterus; Z87.42 Personal history of other diseases of the female genital tract; Z86.711 Personal history of pulmonary embolism; Z87.59 Personal history of other complications of pregnancy, childbirth and the puerperium; Z90.89 Acquired absence of other organs; Z79.01 Long term (current) use of anticoagulants; Z79.82 Long term (current) use of aspirin
CPT/HCPCS: 51701; 74000; 74176; 96361; 96374; 96375; 96376

== ENCOUNTER → 2017-01-22 | Outpatient (CLI) | payer OTHER ==
[~2017-01-22] MED LIST changes: +ATOR10TA66 PO; +CEPH-507 PO; +CLON0.1T PO; +NALT1TAB; +OXYC-202 PO; +TAMS0.4C98 PO; +VERA120T6
--- NOTE | 2017-01-22 14:27 | Diagnostic Imaging Report ---
INDICATION: History of right ureteral calculus. COMPARISON: 01/21/2017. FINDINGS: Two frontal radiographic views of the abdomen were obtained. There is no abnormal extraosseous pelvic calcification seen to correspond to the UVJ calculus identified on the recent CT abdomen/pelvis. No unexpected radiopaque foreign bodies are identified. The small bowel loops are nondistended. There is no large collection of free intraperitoneal air. The included portions of the lung bases are clear. IMPRESSION: 1. No abnormality is seen in the right hemipelvis to correspond to the UVJ calculus identified on the recent CT. This could be related to interval passage. Alternatively, the calculus may be obscured secondary to its small size. 2. Nonobstructed small bowel gas pattern. Dictated by: Dictated on workstation # [id number]
== END ==
LOC: RAD 13:18
PROVIDERS: ATTEND Urology
DX: N20.1 Calculus of ureter (principal)
CPT/HCPCS: 74000

== ENCOUNTER 2017-01-23 11:23 | Outpatient (CLI) | payer OTHER ==
[~2017-01-23] VITALS: Ht 162.6 cm; Wt 108.9 kg
== END 2017-01-23 11:43 ==
LOC: PREOP 11:23
PROVIDERS: ATTEND Urology
DX: Z01.818 Encounter for other preprocedural examination (principal); N20.1 Calculus of ureter

== ENCOUNTER 2017-01-25 09:00 | Day surgery (SDC) | payer OTHER ==
[~2017-01-25] VITALS: Ht 162.6 cm; Wt 108.9 kg
[2017-01-25] MEDS ORDERED: cefTRIAXone 1 GM/NS 50 ML IVPB IV ONE ×2 (09:30)
[2017-01-25] MEDS ORDERED: CATHETER FLUSH 10 ML SYR IV PRN (09:30)
[2017-01-25 09:54] VITALS: BP 122/85
--- NOTE | 2017-01-25 09:56 | Diagnostic Imaging Report ---
INDICATION: Right-sided stones COMPARISON: 01/22/2017 FINDINGS: There is mobile hyperdense foci of intraluminal bowel content when correlating the 2 studies. This results in a substantial limitation for sensitivity for detecting small urolithiasis. No definite opaque stone when today's exam is compared with prior. No evidence for bowel obstruction. IMPRESSION: No acute or focal abnormality. Dictated by: Dictated on workstation # [id number]
[2017-01-25] MEDS ORDERED: LACTATED RINGERS 1,000 ML IV PRN (10:22)
--- NOTE | 2017-01-25 10:23 | Progress Note-Pre Operative ---
Pre-Operative Progress Note H&P Reviewed The H&P was reviewed, patient examined and no changes noted. Date Seen by Provider: Jan 25, 2017 Time Seen by Provider: 10:23 Date H&P Reviewed: Jan 25, 2017 Time H&P Reviewed: 10:23 Pre-Operative Diagnosis: RT URETERAL STONE JATINDER KEARNEY MD Jan 25, 2017 10:23 am
--- NOTE | 2017-01-25 10:23 | Progress Note-Post Operative ---
Post-Operative Progess Note Surgeon (s)/Dinkey Brakeman (s) Surgeon JATINDER KEARNEY MD Dinkey Brakeman: N/A Pre-Operative Diagnosis RIGHT URETERAL STONE Post-Operative Diagnosis SAME Procedure & Operative Findings Date of Procedure 01/25/17 Procedure Performed/Findings RT URETEROSCOPY Anesthesia Type GENERAL Estimated Blood Loss Estimated blood loss (mL): N/A Specimens/Packing Specimens Removed N/A Packing: N/A JATINDER KEARNEY MD Jan 25, 2017 10:23 am
--- NOTE | 2017-01-25 10:26 | Discharge Inst-Urology ---
Discharge Inst-Urology Discharge Medications New, Converted, or Re-newed RX: Other Patient Instructions/Follow Up Plan Please make appointment to been seen in office in 4 weeks. May resume coumadin No Rx Increase oral fluids for 48 hours and then as needed. Diet and Activity as tolerated. If questions or concerns contact your physician Or seek help at emergency department. JATINDER KEARNEY MD Jan 25, 2017 10:26 am
[2017-01-25 11:01] LABS: INR 1.1 (0.8-1.4)
[2017-01-25] MEDS ORDERED: morphine INJ 10 MG/ML 1ML (SYR OR VIAL) IVP PRN (11:30)
[2017-01-25] MEDS ORDERED: KETOROLAC 30 MG/ML VIAL IVP ONE (11:30)
[2017-01-25] MEDS ORDERED: ONDANSETRON 4 MG/2 ML (SDV) Z0FRAN IVP PRN (11:30)
[2017-01-25] MEDS ORDERED: KETOROLAC 30 MG/ML VIAL ONE (11:32)
[2017-01-25 12:05] VITALS: BP 128/80
--- NOTE | 2017-01-25 12:11 | OPERATIVE REPORT ---
DATE OF SERVICE: 01/25/2017 PREOPERATIVE DIAGNOSES: Right distal ureteral stone. POSTOPERATIVE DIAGNOSES: Right distal ureteral stone. OPERATION PERFORMED: Cystoscopy and right ureteroscopy. SURGEON: Arturo Kearney MD ANESTHESIA: General. COMPLICATIONS: None. PROCEDURE: Under satisfactory anesthesia, the patient in the lithotomy position, the genitalia were prepped and draped in the usual sterile fashion. Noted a 3-4+ cystocele. No rectocele. A 22-Korean cystoscope was introduced into the bladder, cystoscopy was normal except some edema and swelling of the intramural portion of the right ureter. Using the foroblique lens, I dilated the right ureteral orifice at the mid portion to accommodate a 6.9 Korean semi-rigid ureteroscope. I went all the way up to the proximal ureter and back in an antegrade fashion. There were no stones, that was the 1 that she passed this morning. Options were given to her at that time to either observe or because she checked in already and she was off the Coumadin and the long weekend coming up, she elected to go ahead and confirm by ureteroscopy the passage of the stone. The ureteroscope was removed and the cystoscope was introduced to empty the bladder. The patient tolerated the procedure and anesthesia well and was sent to the recovery room in stable condition. Job ID: [id number] DocumentID: [id number] Dictated Date: 01/25/2017 11:16:21 Weaving Supervisor Date: 01/25/2017 12:10:51 Dictated By: ARTURO KEARNEY MD
[2017-01-25 12:35] VITALS: BP 112/81
[2017-01-25 13:00] VITALS: BP 150/94
== END 2017-01-25 13:00 | disposition home or self-care (01) ==
LOC: SDC 09:00
PROVIDERS: ATTEND Urology
DX: N20.1 Calculus of ureter (principal); I10 Essential (primary) hypertension; F41.9 Anxiety disorder, unspecified; E66.01 Morbid (severe) obesity due to excess calories; Z68.41 Body mass index [BMI] 40.0-44.9, adult; Z79.899 Other long term (current) drug therapy
CPT/HCPCS: 36415; 74000; 84703; 85610; 85730; 87081

== ENCOUNTER → 2017-12-03 | Outpatient (CLI) | payer OTHER ==
[~2017-12-03] MED LIST changes: -SCOP1PAT TD; +SCOP1PAT11 TD
--- NOTE | 2017-12-03 15:57 | Diagnostic Imaging Report ---
INDICATION: Routine screening. COMPARISON: 11/07/2016 and 11/24/2015. TECHNIQUE: 2D and 3D bilateral screening mammography was performed with CAD. FINDINGS: Scattered fibroglandular densities are identified bilaterally. No mass or malignant appearing microcalcifications are seen. The axillae are unremarkable. IMPRESSION: No mammographic features suspicious for malignancy are identified. ACR BI-RADS Category 1: Negative. Result letter will be mailed to the patient. Note: At least 10% of breast cancer is not imaged by mammography. Dictated by: Dictated on workstation # [id number]
== END ==
LOC: RAD 10:24
PROVIDERS: ATTEND Internal Medicine
DX: Z12.31 Encounter for screening mammogram for malignant neoplasm of breast (principal)
CPT/HCPCS: 77067

== ENCOUNTER → 2020-12-28 | Outpatient (CLI) | payer BC, OTHER ==
[~2020-12-28] MED LIST changes: +CLN.1T PO; -CLON0.1T PO; -OXYC-202 PO; +OXYC1TAB12 PO; -TAMS0.4C98 PO; +TMSL.4C PO; +VERA120T15; -VERA120T6
--- NOTE | 2020-12-28 14:12 | Diagnostic Imaging Report ---
PROCEDURE: Pelvic complete, transabdominal and transvaginal sonogram. Limited pelvic doppler. TECHNIQUE: Multiple real-time grayscale images were obtained of the pelvis in various projections transabdominally and transvaginally. Limited pelvic duplex images were obtained. HISTORY: Abnormal uterine bleeding. COMPARISON: Pelvic ultrasound from 09/18/2016. FINDINGS: Uterus: The uterus is retroverted and measures 5.7 x 4.5 x 4.4 cm. There is a 0.9 cm suspected anterior fundal intramural uterine fibroid. Endometrium: The endometrium is normal in thickness and measures 0.7 cm. There is no fluid within the endometrial cavity. Adnexa: 0.8 cm hyperechoic nodule within the right ovary. Ovaries have otherwise normal appearance. The right ovary measures 4.1 x 2.4 x 2.6 cm and the left ovary measures 3.3 x 2.5 x 2.2 cm. Duplex images reveal normal vascular flow to both ovaries. Other: There is no free fluid within the pelvis. IMPRESSION: 1. Likely 0.9 cm intramural uterine fibroid. 2. A 0.8 cm hyperechoic nodule within the right ovary which could represent a small dermoid. Dictated by: Dictated on workstation # [id number]
== END ==
LOC: RAD 10:00
PROVIDERS: ATTEND Surgery
DX: N83.8 Other noninflammatory disorders of ovary, fallopian tube and broad ligament (principal)
CPT/HCPCS: 76830; 76856

== ENCOUNTER 2021-10-21 09:07 | Outpatient (RCR) | payer BC ==
[~2021-10-21 09:07] MED LIST changes: +SCOP1PAT10 TD; -SCOP1PAT11 TD
== END 2021-10-25 | disposition home or self-care (01) ==
PROVIDERS: ATTEND Physician Assistant
DX: M54.16 Radiculopathy, lumbar region (principal); I10 Essential (primary) hypertension

== ENCOUNTER 2021-11-23 08:04 | Outpatient (RCR) | payer BC | END 2021-11-24 | disposition home or self-care (01) | PROVIDERS: ATTEND Physician Assistant | DX: M54.16 Radiculopathy, lumbar region (principal); I10 Essential (primary) hypertension ==

== ENCOUNTER 2021-12-19 13:37 | Outpatient (RCR) | payer BC | END 2021-12-25 | disposition home or self-care (01) | PROVIDERS: ATTEND Physician Assistant | DX: M54.16 Radiculopathy, lumbar region (principal); I10 Essential (primary) hypertension ==

== ENCOUNTER 2021-12-27 08:50 | Outpatient (RCR) | payer BC | END 2022-01-25 | disposition home or self-care (01) | PROVIDERS: ATTEND Physician Assistant | DX: M54.16 Radiculopathy, lumbar region (principal); I10 Essential (primary) hypertension ==

== ENCOUNTER 2022-01-19 20:11 | Emergency (ER) | payer BC ==
[~2022-01-19] VITALS: Ht 165.1 cm; Wt 63.5 kg
[2022-01-19] MEDS ORDERED: NITROGLYCERIN 0.4 MG SL TABS BTL 25'S SL PRN (20:15)
[2022-01-19] MEDS ORDERED: ASPIRIN 81 MG CHEW (CHILDREN'S ASA) PO ONE (20:15)
[2022-01-19 20:39] LABS: BASOPHILS # (AUTO) 0.1 10^3/uL (0.0-0.1); BASOPHILS % (AUTO) 1 % (0-10); EOSINOPHILS # (AUTO) 0.2 10^3/uL (0.0-0.3); EOSINOPHILS % (AUTO) 1 % (0-10); HEMATOCRIT 39 % (35-52); HEMOGLOBIN 13.6 g/dL (11.5-16.0); LYMPHOCYTES % (AUTO) 26 % (12-44); MEAN CORPUSCULAR HEMOGLOBIN 31 pg (25-34); MEAN CORPUSCULAR HGB CONC 35 g/dL (32-36); MEAN CORPUSCULAR VOLUME 89 fL (80-99); MONOCYTES # (AUTO) 1.1 10^3/uL (0.0-1.0); MONOCYTES % (AUTO) 10 % (0-12); NEUTROPHILS # (AUTO) 7.1 10^3/uL (1.8-7.8); NEUTROPHILS % (AUTO) 62 % (42-75); PLATELET COUNT 241 10^3/uL (130-400); WHITE BLOOD COUNT 11.5 10^3/uL (4.3-11.0)
[2022-01-19 20:51] LABS: ALBUMIN 4.3 GM/DL (3.2-4.5); INR 1.1 (0.8-1.4); POTASSIUM 3.9 MMOL/L (3.6-5.0); PROTHROMBIN TIME PATIENT 14.2 SEC (12.2-14.7)
--- NOTE | 2022-01-19 20:51 | Diagnostic Imaging Report ---
INDICATION: Chest pain. TECHNIQUE: Single view chest 8:37 PM. CORRELATION STUDY: None. FINDINGS: Significant limited depth of inspiration. This likely accentuates heart size, mediastinum and vasculature. Lung amaya overall appear generally clear. IMPRESSION: Significant hypoventilation likely resulting in crowding of the chest anatomy. No definitive acute cardiopulmonary abnormality. Dictated by: Dictated on workstation # [id number]
[2022-01-19 20:52] LABS: CALCIUM 9.8 MG/DL (8.5-10.1)
[2022-01-19 20:53] LABS: TOTAL PROTEIN 7.5 GM/DL (6.4-8.2)
[2022-01-19 20:55] LABS: BILIRUBIN,TOTAL 0.6 MG/DL (0.1-1.0)
[2022-01-19 20:57] LABS: CREATININE SERUM 0.92 MG/DL (0.60-1.30)
[2022-01-19 21:00] LABS: MAGNESIUM 1.8 MG/DL (1.6-2.4)
[2022-01-19 21:08] LABS: CREATINE KINASE MB 1.4 NG/ML (<6.6)
[2022-01-19] MEDS ORDERED: NS 100 ML (IVPB) BAG IV ONE (21:45)
[2022-01-19] MEDS ORDERED: IOHEXOL 350 MG/ML 100 ML (OMNIPAQUE 350) VIAL IV ONE (21:45)
--- NOTE | 2022-01-19 22:17 | Diagnostic Imaging Report ---
PROCEDURE: CT angiography of the chest with contrast. TECHNIQUE: Multiple contiguous axial images were obtained through the chest after uneventful bolus administration of intravenous contrast. 3D reconstructed CTA MIP acquisitions were also performed. Auto Exposure Controls were utilized during the CT exam to meet ALARA standards for radiation dose reduction. INDICATION: 46-year-old female, chest pain, shortness of air. CORRELATION: None. FINDINGS: Thyroid gland is enlarged and has a nodular appearance with probable small nodules. Heart size within normal lives. No disproportionate right heart strain. The thoracic aortic contour is unremarkable. No pathologically enlarged mediastinal lymph nodes. Small esophageal hernia. No pulmonary artery filling defect to suggest pulmonary embolism. The lung amaya are clear of infiltrate. No significant pleural effusion. Visualized portion of the liver appears to be enlarged and likely with steatosis. The visualized osseous structures demonstrate no acute findings. IMPRESSION: 1. No CTA evidence for pulmonary embolism or acute aortic syndrome. 2. Enlarged nodular thyroid gland. Nonemergent thyroid ultrasound imaging is recommended for follow-up. 3. Hepatomegaly with steatosis. Dictated by: Dictated on workstation # [id number]
--- NOTE | 2022-01-19 23:52 | ED Cardiac General ---
History of Present Illness General Chief Complaint: Chest Pain Stated Complaint: CHEST PAIN - SOA Nursing Triage Note: pt ambulatory to room. states she had chest pain in the center of her chest. soreness, hurts to breathe. feels "flutter." states chest pain has been for approx 1 hr, started while grocery shopping. pt states she was started on two new antibiotics today as well for infection in right elbow 6 weeks post surgery Allergies and Home Medications Allergies Coded Allergies: No Known Drug Allergies (Unverified , 01/23/17) Patient Home Medication List Atorvastatin Calcium (Atorvastatin Calcium) 10 Mg Tablet, 10 MG PO HS, (Reported) Entered as Reported by: TONY MILLER on 01/23/17 110 Cephalexin (Keflex) 500 Mg Capsule, 500 MG PO BID Prescribed by: DENISE URIARTE on 01/22/17 012 Citalopram Hydrobromide (Celexa) 20 Mg Tablet, 20 MG PO DAILY, (Reported) Entered as Reported by: TONY MILLER on 06/16/15 155 Clonidine HCl (Clonidine HCl) 0.1 Mg Tablet, 0.01 MG PO PRN PRN for SLEEP, (Reported) Entered as Reported by: FERNANDO JAVIER on 01/21/172146 Inulin/Chromium Picolinate (Fiber Gummies) 1 Each Tab.chew, 2 EACH PO BID, (Reported) Entered as Reported by: TONY MILLER on 06/16/15 155 L.acidoph & Paracasei,B.lactis (Probiotic) 1 Each Capsule, 1 EACH PO DAILY, (Reported) Entered as Reported by: TONY MILLER on 06/16/15 155 Naltrexone HCl/Bupropion HCl (Contrave ER 8-90 mg Tablet) 1 Each Tablet.er, (Reported) Entered as Reported by: FERNANDO JAVIER on 01/21/172146 Ondansetron (Zofran Odt) 4 Mg Tab.rapdis, 4 MG PO Q4H PRN for NAUSEA/VOMITING- 1ST LINE Prescribed by: DENISE URIARTE on 01/22/17 0131 Oxycodone HCl/Acetaminophen (Percocet 10-325 mg Tablet) 1 Each Tablet, 1-2 EACH PO Q6H PRN for BREAKTHROUGH PAIN Prescribed by: DENISE URIARTE on 01/22/17 0124 Tamsulosin HCl (Flomax) 0.4 Mg Cap, 0.4 MG PO HS Prescribed by: DENISE URIARTE on 01/22/17 012 Verapamil HCl (Verapamil HCl) 120 Mg Tablet, (Reported) Entered as Reported by: FERNANDO JAVIER on 01/21/172146 Warfarin Sodium (Coumadin) 7.5 Mg Tablet, 7.5 MG PO UD, (Reported) Entered as Reported by: TONY MILLER on 06/16/15 155 Warfarin Sodium (Coumadin) 10 Mg Tablet, 15 MG PO UD, (Reported) Entered as Reported by: TONY MILLER on 06/16/15 155 Past Slwdirs-Hyiboo-Rahpdc Hx Immunizations Up To Date Tetanus Booster (TDap): Unknown PED Vaccines UTD: Yes Seasonal Allergies Seasonal Allergies: Yes (MILD) Past Medical History Surgeries: Yes (ABDOMINOPLASTY; X 1) Adenoidectomy, Section, Tonsillectomy Respiratory: Yes (P.E. 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 0.0oz. 108.341414or; 23.00 BMI Method:Stated Progress/Results/Core Measures Results/Orders Lab Results Laboratory Tests Test 01/19/22 20:34 01/19/22 23:00 Range/Units White Blood Count 11.5 H 4.3-11.0 10^3/uL Red Blood Count 4.41 3.80-5.11 10^6/uL Hemoglobin 13.6 11.5-16.0 g/dL Hematocrit 39 35-52 % Mean Corpuscular Volume 89 80-99 fL Mean Corpuscular Hemoglobin 31 25-34 pg Mean Corpuscular Hemoglobin Concent 35 32-36 g/dL Red Cell Distribution Width 12.2 10.0-14.5 % Platelet Count 241 130-400 10^3/uL Mean Platelet Volume 11.0 9.0-12.2 fL Immature Granulocyte % (Auto) 0 % Neutrophils (%) (Auto) 62 42-75 % Lymphocytes (%) (Auto) 26 12-44 % Monocytes (%) (Auto) 10 0-12 % Eosinophils (%) (Auto) 1 0-10 % Basophils (%) (Auto) 1 0-10 % Neutrophils # (Auto) 7.1 1.8-7.8 10^3/uL Lymphocytes # (Auto) 3.0 1.0-4.0 10^3/uL Monocytes # (Auto) 1.1 H 0.0-1.0 10^3/uL Eosinophils # (Auto) 0.2 0.0-0.3 10^3/uL Basophils # (Auto) 0.1 0.0-0.1 10^3/uL Immature Granulocyte # (Auto) 0.0 0.0-0.1 10^3/uL Prothrombin Time 14.2 12.2-14.7 SEC INR Comment 1.1 0.8-1.4 Activated Partial Thromboplast Time 35 24-35 SEC D-Dimer 0.23 0.00-0.49 UG/ML Sodium Level 137 135-145 MMOL/L Potassium Level 3.9 3.6-5.0 MMOL/L Chloride Level 105 98-107 MMOL/L Carbon Dioxide Level 20 L 21-32 MMOL/L Anion Gap 12 5-14 MMOL/L Blood Urea Nitrogen 14 7-18 MG/DL Creatinine 0.92 0.60-1.30 MG/DL Estimat Glomerular Filtration Rate 78 BUN/Creatinine Ratio 15 Glucose Level 88 70-105 MG/DL Calcium Level 9.8 8.5-10.1 MG/DL Corrected Calcium 9.6 8.5-10.1 MG/DL Magnesium Level 1.8 1.6-2.4 MG/DL Total Bilirubin 0.6 0.1-1.0 MG/DL Aspartate Amino Transf (AST/SGOT) 20 5-34 U/L Alanine Aminotransferase (ALT/SGPT) 26 0-55 U/L Alkaline Phosphatase 62 40-136 U/L Total Creatine Kinase 147 29-168 U/L Creatine Kinase MB 1.4 <6.6 NG/ML Myoglobin 40.2 10.0-92.0 NG/ML Troponin I < 0.028 < 0.028 <0.028 NG/ML B-Type Natriuretic Peptide < 10.0 <100.0 PG/ML Total Protein 7.5 6.4-8.2 GM/DL Albumin 4.3 3.2-4.5 GM/DL Amylase Level 45 25-125 U/L Lipase 30 8-78 U/L My Orders Orders - CHRISTA WRIGHT DO Cbc With Automated Diff (01/19/22 20:15) Magnesium (01/19/22 20:15) Chest 1 View, Ap/Pa Only (01/19/22 20:15) Ekg Tracing (01/19/22 20:15) Comprehensive Metabolic Panel (01/19/22 20:15) Myoglobin Serum (01/19/22 20:15) Protime With Inr (01/19/22 20:15) Partial Thromboplastin Time (01/19/22 20:15) O2 (01/19/22 20:15) Monitor-Rhythm Ecg Trace Only (01/19/22 20:15) Ed Iv/Invasive Line Start (01/19/22 20:15) Creatine Kinase (01/19/22 20:15) Creatine Kinase Mb (01/19/22 20:15) Lipase (01/19/22 20:15) Amylase (01/19/22 20:15) Bnp [place] (01/19/22 20:15) Fibrin Degradation Products (01/19/22 20:15) Troponin I Kin[place] (01/19/22 20:15) Nitroglycerin 0.4 Mg Btl 25's (Nitrostat (01/19/22 20:15) Aspirin Chewable Tablet (Baby Aspirin Ch (01/19/22 20:15) Ct Angio Chest W (01/19/22 21:12) Iohexol Injection (Omnipaque 350 Mg/Ml 1 (01/19/22 21:45) Ns (Ivpb) (Sodium Chloride 0.9% Ivpb Bag (01/19/22 21:45) Ekg Tracing (01/19/22 23:00) Troponin I Kin[place] (01/19/22 23:00) Medications Given in ED Current Medications Medications Dose Ordered Sig/John Route Start Time Stop Time Status Last Admin Dose Admin Aspirin 324 mg ONCE ONCE PO 01/19/22 20:15 01/19/22 20:17 DC 01/19/22 20:39 324 MG Iohexol 100 ml ONCE ONCE IV 01/19/22 21:45 01/19/22 21:46 DC 01/19/22 21:42 82 ML Sodium Chloride 100 ml ONCE ONCE IV 01/19/22 21:45 01/19/22 21:46 DC 01/19/22 21:42 72 ML Vital Signs/I&O 01/19/22 20:15 Pulse 88 Resp 20 B/P (MAP) 124/73 (90) Pulse Ox 100 Blood Pressure Mean: 90 Departure Impression Primary Impression: Chest pain Disposition: 01 HOME, SELF-CARE Condition: Stable Departure-Patient Inst. Decision time for Depature: 23:50 Referrals: XIOMARA ESCOBEDO MD (PCP/Family) Primary Care Physician Patient Instructions: Chest Pain (DC) Add. Discharge Instructions: HOME, REST TAKE YOUR MEDICATIONS PRESCRIBED FOLLOW UP WITH DR. ESCOBEDO THIS WEEK FOR FURTHER CARE, RETURN TO ER IF SYMPTOMS WORSEN All discharge instructions reviewed with patient and/or family. Voiced understanding. CHRISTA WRIGHT DO Jan 19, 2022 23:52
[2022-01-19 23:58] VITALS: BP 101/50
== END 2022-01-19 23:58 | disposition home or self-care (01) ==
LOC: EDUNIT# 20:11 → ER 20:12
DX: R07.9 Chest pain, unspecified (principal); E66.9 Obesity, unspecified; Z68.23 Body mass index [BMI] 23.0-23.9, adult; Z28.311 Partially vaccinated for COVID-19
CPT/HCPCS: 36415; 71045; 71275; 80053; 82150; 82550; 82553; 83690; 83735; 83874; 83880; 84484; 85025; 85379; 85610; 85730; 93005; 93041

== ENCOUNTER → 2022-03-16 | Outpatient (CLI) | payer BC ==
--- NOTE | 2022-03-16 12:32 | Diagnostic Imaging Report ---
PROCEDURE: US Thyroid. TECHNIQUE: Multiple real-time grayscale images were obtained of the thyroid in various projections. INDICATION: Thyroid enlargement. No prior studies are available for comparison. FINDINGS: Right lobe of thyroid measures 5.4 x 1.9 x 2.5 cm and the left lobe measures 5.7 x 2.3 x 1.8 cm. Isthmus 7 mm in thickness. There is a mixed solid and cystic nodule in the mid to lower aspect of the right lobe of thyroid measuring 2.3 x 1.4 x 2.1 cm. There is a subcentimeter approximately 6 mm nodule upper pole right lobe. There is 8 to 9 mm nodules in the mid lower aspect of the left lobe of thyroid. No microcalcifications are seen. IMPRESSION: Bilateral thyroid nodules. There is a dominant mixed solid and cystic nodule right lobe of the thyroid, TI-RADS 4. Fine-needle aspiration would be recommended. Dictated by: Dictated on workstation # [id number]
== END ==
LOC: RAD 08:46
PROVIDERS: ATTEND Nurse Practitioner Family
DX: E04.2 Nontoxic multinodular goiter (principal)
CPT/HCPCS: 76536

== ENCOUNTER → 2022-05-17 | Outpatient (CLI) | payer BC ==
[~2022-05-17] VITALS: Ht 162.6 cm; Wt 104.5 kg
[~2022-05-17] MED LIST changes: +LIDOCAINE 1% INJ 30 ML (XYLOCAINE) VIAL INJ ONE
--- NOTE | 2022-05-17 12:00 | Diagnostic Imaging Report ---
Indication: Right thyroid nodule. Patient presents for ultrasound guided fine needle aspiration. Patient brought to the procedure and placed on table supine position. Ultrasound imaging of the neck was performed to evaluate appropriate entry site. Neck was then prepped and draped in usual sterile fashion. Small amount of 1% lidocaine was utilized for local anesthesia. A total of 4 passes were made into the dominant solid mass right lobe of thyroid utilizing 25-gauge needles and fine-needle aspiration technique. A single pass was made with a Rotex needle and Rotex biopsy was performed. Hemostasis was obtained. Patient tolerated the procedure well and left the Department in stable condition. IMPRESSION: Successful ultrasound-guided fine-needle aspiration and Rotex biopsy right lobe thyroid nodule. Pathology results are currently pending. Dictated by: Dictated on workstation # [id number]
== END ==
LOC: RAD 10:43
PROVIDERS: ATTEND Nurse Practitioner Family
DX: E04.1 Nontoxic single thyroid nodule (principal)
CPT/HCPCS: 10005

== ENCOUNTER 2022-06-20 10:10 | Outpatient (CLI) | payer BC ==
[~2022-06-20] VITALS: Ht 162.6 cm; Wt 106.6 kg
[~2022-06-20 10:10] MED LIST changes: -LIDOCAINE 1% INJ 30 ML (XYLOCAINE) VIAL INJ ONE; -VERA120T15; +VERA120T15 PO
[2022-06-20] MEDS ORDERED: SERT-414 PO (13:51)
[2022-06-20] MEDS ORDERED: METF-865 PO (13:51)
[2022-06-20] MEDS ORDERED: APIX5TAB PO (13:51)
[2022-06-20] MEDS ORDERED: SPIR100T4 PO (13:51)
== END 2022-06-20 13:54 | disposition home or self-care (01) ==
LOC: PREOP 10:10
PROVIDERS: ATTEND Surgery
DX: Z01.818 Encounter for other preprocedural examination (principal)

== ENCOUNTER 2022-06-21 11:04 | Day surgery (SDC) | payer BC ==
[2022-06-21] VITALS (7 sets, daily range): BP systolic 97–114; BP diastolic 56–78
[~2022-06-21] VITALS: Ht 162.6 cm; Wt 106.6 kg
[~2022-06-21 11:04] MED LIST changes: +APIX5TAB PO; +METF-865 PO; +SERT-414 PO; +SPIR100T4 PO
[2022-06-21] MEDS ORDERED: LACTATED RINGERS 1,000 ML IV STA (11:15)
[2022-06-21] MEDS ORDERED: LIDOCAINE JELLY 2% 6 ML SYRINGE MM PRN (11:30)
--- NOTE | 2022-06-21 11:34 | Progress Note-Pre Operative ---
Pre-Operative Progress Note Date of Available H&P: Jun 21, 2022 Date H&P Reviewed: Jun 21, 2022 Time H&P Reviewed: 11:00 History & Physical: No changes noted Pre-Operative Diagnosis: +cologaurd, hx polyp CRISTHIAN GONZALEZ MD Jun 21, 2022 11:34
--- NOTE | 2022-06-21 11:36 | Discharge Inst-Surgical ---
D/C Lap Instructions-CARLOS Follow Up Activity as tolerated High Fiber Diet 25g or more per day Avoid Alcohol, Caffeine, Spicy [place] and Acid foods. Drink 64 fluid oz or more of fluids per day. Symptoms to Report: Fever over 101 degree F, Nausea/Vomiting If any problems/questions: Contact your physician or go to Emergency Room CRISTHIAN GONZALEZ MD Jun 21, 2022 11:36
[2022-06-21] MEDS ORDERED: ONDANSETRON 4 MG/2 ML (SDV) Z0FRAN IVP PRN (11:45)
[2022-06-21] MEDS ORDERED: ONDANSETRON 4 MG (ZOFRAN) ORAL DISSOLVE TAB PO PRN (11:45)
[2022-06-21] MEDS ORDERED: PROPOFOL INJECTION 50 ML IV ONE (12:14)
[2022-06-21] MEDS ORDERED: LIDOCAINE JELLY 2% 6 ML SYRINGE ONE (12:15)
[2022-06-21] MEDS ORDERED: MIDAZOLAM 2 MG/2 ML (VERSED) VIAL ONE (12:16)
--- NOTE | 2022-06-21 13:39 | Progress Note-Post Operative ---
Post-Operative Progess Note Surgeon (s)/Credit Risk Review Officer (s) Surgeon CRISTHIAN GONZALEZ MD Credit Risk Review Officer: none Pre-Operative Diagnosis +cologaurd, hx polyp Post-Operative Diagnosis mild chronic stage 1 ext and int hemorrhoids. Procedure & Operative Findings Date of Procedure 06/21/22 Procedure Performed/Findings colonoscopy Anesthesia Type mac Estimated Blood Loss Estimated blood loss (mL): minimal Specimens/Packing Specimens Removed none CRISTHIAN GONZALEZ MD Jun 21, 2022 13:39
--- NOTE | 2022-06-21 14:21 | Anesthesia-General Post-Op ---
MAC Patient Condition Mental Status/LOC: Same as Preop Cardiovascular: Satisfactory Nausea/Vomiting: Absent Respiratory: Satisfactory Pain: Controlled Complications: Absent Post Op Complications Complications None Follow Up Care/Instructions Patient Instructions None needed. Anesthesiology Discharge Order Discharge Order Patient is doing well, no complaints, stable vital signs, no apparent adverse anesthesia problems. No complications reported per nursing. EREN DELEON CRNA Jun 21, 2022 14:21
--- NOTE | 2022-06-21 20:58 | OPERATIVE REPORT ---
DATE OF SERVICE: 06/21/2022 ATTENDING PRIMARY CARE PHYSICIAN: Dr. Joanne Hernandez. PREOPERATIVE DIAGNOSIS: Screening colonoscopy with personal history of polyps. POSTOPERATIVE DIAGNOSIS: Mild chronic stage I external and internal hemorrhoids. PROCEDURE: Colonoscopy. SURGEON: Cristhian Gonzalez MD ANESTHESIA:. Monitored anesthesia care. ESTIMATED BLOOD LOSS: Minimal. FINDINGS: Mild chronic stage I external and internal hemorrhoids. DISPOSITION: The patient tolerated the procedure well. INDICATIONS: The patient is a 46-year-old female referred over to us for a screening colonoscopy with a history of polyps in the past. She states that she is otherwise doing well. Does not report any major issues with diarrhea, nor constipation as well as no red blood per rectum or any dark tarry stools. She also does not know of any family history of colon cancer. DESCRIPTION OF PROCEDURE: The patient was brought to the endoscopy suite and laid in the left lateral decubitus position. After adequate IV pain and sedative medications and monitored anesthesia care, a digital rectal examination was performed which revealed mild chronic stage I external and internal hemorrhoids, not actively edematous nor inflamed and no bleeding. Normal sphincter tone was felt and there were no palpable masses. The endoscope was then intubated into the anus, rectum and gently insufflated. The endoscope was then advanced through the valves of [place] of the rectum with no polyps or neoplasms were identified. The endoscope was then advanced through the sigmoid colon where no diverticulosis identified. We then proceeded through the remainder of the descending, transverse and ascending colon to the cecum, which were normal. The endoscope was then slowly withdrawn, taking a second look and suctioning of residual air with no additional findings. The patient tolerated the procedure well. We will recommend continued medical management with a high-fiber diet with a fiber supplement, which should equal or exceed 25 grams daily to promote soft consistency stools on a daily basis and if she is asymptomatic, she does not need another colonoscopy for another 10 years. Job ID: [id number] DocumentID: [id number] Dictated Date: 06/21/2022 13:01:04 Film Librarian Date: 06/21/2022 20:56:00 Dictated By: CRISTHIAN GONZALEZ MD
== END 2022-06-21 13:59 | disposition home or self-care (01) ==
LOC: ENDO 11:04
PROVIDERS: ATTEND Surgery
DX: Z12.11 Encounter for screening for malignant neoplasm of colon (principal); K64.0 First degree hemorrhoids; K64.4 Residual hemorrhoidal skin tags; E11.9 Type 2 diabetes mellitus without complications; C73 Malignant neoplasm of thyroid gland; E66.01 Morbid (severe) obesity due to excess calories; Z68.41 Body mass index [BMI] 40.0-44.9, adult; Z86.010 Personal history of colon polyps; Z28.310 Unvaccinated for COVID-19
CPT/HCPCS: 84703

== ENCOUNTER 2022-09-17 08:25 | Emergency (ER) | payer BC ==
[~2022-09-17] VITALS: Ht 162 cm; Wt 99.0 kg
--- NOTE | 2022-09-17 08:53 | ED GI ---
General Chief Complaint: Abdominal/GI Problems Stated Complaint: VOMITING/DIARRHEA/CHILLS Nursing Triage Note: PT AMB TO RM 10 PT CO OF ABD PAIN 09/04. PT CO OF N/V/D STARTED TODAY. PT DENIES FEVERS. PT HAS HAD PARTIAL THYROIDECTOMY ON 09/07/22. PT STATES WAS CONSTIPATED YESTERDAY. Source of Information: Patient Exam Limitations: No Limitations History of Present Illness Date Seen by Provider: Sep 17, 2022 Time Seen by Provider: 08:44 Initial Comments This 46-year-old woman presents to the emergency room with complaints of lower abdominal pain, diarrhea, abdominal cramping, nausea, and vomiting. She was constipated yesterday and developed pain and cramping at that time. She did not take any medications for the constipation. She then began having more severe cramping and diarrhea this morning accompanied by the nausea and vomiting. She recently had a right hemithyroidectomy due to nodules on September 07 at [facility]. She does not yet know results of that pathology. She has follow-up on September 25. She takes Eliquis due to protein C deficiency and history of pulmonary emboli. She has had some chills without fever. Lower abdominal pain is crampy and intermittent without significant tenderness. Vital signs are unremarkable. She has not taken her morning medications including Eliquis. Allergies and Home Medications Allergies Coded Allergies: No Known Drug Allergies (Unverified , 01/23/17) Patient Home Medication List Home Medication List Reviewed: Yes Apixaban (Eliquis) 5 Mg Tablet, 5 MG PO BID, (Reported) Entered as Reported by: YESSI SWAIN on 06/20/22 1351 Atorvastatin Calcium (Atorvastatin Calcium) 10 Mg Tablet, 10 MG PO HS, (Reported) Entered as Reported by: TONY MILLER on 01/23/17 1108 Hyoscyamine Sulfate (Levsin-Sl) 0.125 Mg Tab.subl, 1-2 TAB SL Q4H PRN for CRAMPS Prescribed by: JULIAN ONEILL on 09/17/22 1159 Metformin HCl (Metformin HCl ER) 500 Mg Tab.er.24h, 500 MG PO BID, (Reported) Entered as Reported by: YESSI SWAIN on 06/20/22 1351 Ondansetron (Ondansetron Odt) 4 Mg Tab.rapdis, 4 MG SL Q4H PRN for NAUSEA/VOMITING Prescribed by: JULIAN ONEILL on 09/17/22 1159 Sertraline HCl (Sertraline HCl) 100 Mg Tablet, 100 MG PO HS, (Reported) Entered as Reported by: YESSI SWAIN on 06/20/22 1351 Spironolactone (Spironolactone) 100 Mg Tablet, 100 MG PO HS, (Reported) Entered as Reported by: YESSI SWAIN on 06/20/22 1351 Verapamil HCl (Verapamil HCl) 120 Mg Tablet, 120 MG PO HS, (Reported) Entered as Reported by: FERNANDO JAVIER on 01/21/17 9653 Review of Systems Review of Systems Constitutional: chills EENTM: See HPI Respiratory: No Symptoms Reported Cardiovascular: No Symptoms Reported Gastrointestinal: See HPI Genitourinary: No Symptoms Reported Musculoskeletal: no symptoms reported Skin: see HPI Psychiatric/Neurological: No Symptoms Reported Endocrine: No Symptoms Reported Hematologic/Lymphatic: No Symptoms Reported Past Uqbycoh-Btniqw-Rgbdtf Hx Patient Social History Tobacco Use?: No Substance use?: No Alcohol Use?: No Pt feels they are or have been: No Immunizations Up To Date Tetanus Booster (TDap): Unknown PED Vaccines UTD: Yes Influenza Vaccine Up-to-Date: No; Not Current First/Initial COVID19 Vaccinat: NO Second COVID19 Vaccination Sarabjit: NO Third COVID19 Vaccination Date: NO Seasonal Allergies Seasonal Allergies: Yes (MILD) Past Medical History Surgery/Hospitalization HX: HTN, PARTIAL THYROIDECTOMY. Surgeries: Yes (ABDOMINOPLASTY; X 1;R ELBOW SURGERY x3, uterine ablation) Abdominal, Adenoidectomy, Section, Orthopedic, Thyroidectomy (Right hemithyroidectomy), Tonsillectomy Respiratory: Yes (P.E. 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 Sexually Transmitted Disease: No HIV/AIDS: No Genitourinary: Yes Kidney Stones Gastrointestinal: Yes Polyps, Irritable Bowel Musculoskeletal: Yes (CHRONIC HIP PAIN ) Arthritis Endocrine: Yes (OBESITY, nodular thyroid) Diabetes, Non-Insulin dep HEENT: No Loss of Vision: Denies Hearing Impairment: Denies Cancer: No (possible thyroid ca, bx in apr 2022 ?results going to [facility] 07/03) Psychosocial: Yes Anxiety Integumentary: No Blood Disorders: Yes (DVT'S/PE'S ; PROTEIN C DEFICIENCY) Adverse Reaction/Blood Tranf: No (HAS HAD BLOOD WITH NO REACTION) Physical Exam Vital Signs Vital Signs - First Documented 09/17/22 08:30 Temp 36.8 Pulse 86 Resp 18 B/P (MAP) 117/95 (102) Pulse Ox 100 O2 Delivery Room Air Capillary Refill : Less Than 3 Seconds Height/Weight/BMI Height: 5'4.00" Weight: 240lbs. 0.0oz. 108.556189bd; 37.00 BMI Method:Stated General Appearance: WD/WN, no apparent distress HEENT: normal ENT inspection, pharynx normal Neck: normal inspection Respiratory: lungs clear, normal breath sounds, no respiratory distress Cardiovascular: regular rate, rhythm, no edema, no murmur Gastrointestinal: normal bowel sounds, non tender, soft; No distended Extremities: normal inspection, no pedal edema Neurologic/Psychiatric: no motor/sensory deficits, alert Skin: normal color, warm/dry, other (Incision clean, dry, and intact with no inflammatory changes or drainage with glue still in place on the anterior lower neck) Progress/Results/Core Measures Results/Orders Lab Results Laboratory Tests Test 09/17/22 08:40 09/17/22 09:59 Range/Units White Blood Count 21.8 H 4.3-11.0 10^3/uL Red Blood Count 5.20 H 3.80-5.11 10^6/uL Hemoglobin 15.9 11.5-16.0 g/dL Hematocrit 45 35-52 % Mean Corpuscular Volume 87 80-99 fL Mean Corpuscular Hemoglobin 31 25-34 pg Mean Corpuscular Hemoglobin Concent 35 32-36 g/dL Red Cell Distribution Width 12.3 10.0-14.5 % Platelet Count 273 130-400 10^3/uL Mean Platelet Volume 10.8 9.0-12.2 fL Immature Granulocyte % (Auto) 1 % Neutrophils (%) (Auto) 87 H 42-75 % Lymphocytes (%) (Auto) 7 L 12-44 % Monocytes (%) (Auto) 5 0-12 % Eosinophils (%) (Auto) 0 0-10 % Basophils (%) (Auto) 0 0-10 % Neutrophils # (Auto) 19.0 H 1.8-7.8 10^3/uL Lymphocytes # (Auto) 1.4 1.0-4.0 10^3/uL Monocytes # (Auto) 1.1 H 0.0-1.0 10^3/uL Eosinophils # (Auto) 0.1 0.0-0.3 10^3/uL Basophils # (Auto) 0.1 0.0-0.1 10^3/uL Immature Granulocyte # (Auto) 0.1 0.0-0.1 10^3/uL Neutrophils % (Manual) 88 % Lymphocytes % (Manual) 9 % Monocytes % (Manual) 2 % Eosinophils % (Manual) 1 % Basophils % (Manual) 0 % Band Neutrophils 0 % Blood Morphology Comment NORMAL Sodium Level 142 135-145 MMOL/L Potassium Level 3.5 L 3.6-5.0 MMOL/L Chloride Level 107 98-107 MMOL/L Carbon Dioxide Level 19 L 21-32 MMOL/L Anion Gap 16 H 5-14 MMOL/L Blood Urea Nitrogen 13 7-18 MG/DL Creatinine 1.01 0.60-1.30 MG/DL Estimat Glomerular Filtration Rate 70 BUN/Creatinine Ratio 13 Glucose Level 106 H 70-105 MG/DL Calcium Level 10.0 8.5-10.1 MG/DL Magnesium Level 1.9 1.6-2.4 MG/DL C-Reactive Protein High Sensitivity 0.27 0.00-0.50 MG/DL Lipase 48 8-78 U/L Urine Color YELLOW Urine Clarity CLEAR Urine pH 5.5 5-9 Urine Specific [place] >=1.030 1.016-1.022 Urine Protein NEGATIVE NEGATIVE Urine Glucose (UA) NEGATIVE NEGATIVE Urine Ketones TRACE H NEGATIVE Urine Nitrite NEGATIVE NEGATIVE Urine Bilirubin 1+ H NEGATIVE Urine Urobilinogen 1.0 < = 1.0 MG/DL Urine Leukocyte Esterase NEGATIVE NEGATIVE Urine RBC (Auto) NEGATIVE NEGATIVE Urine RBC NONE /HPF Urine WBC NONE /HPF Urine Squamous Epithelial Cells RARE /HPF Urine Crystals NONE /LPF Urine Bacteria NEGATIVE /HPF Urine Casts NONE /LPF Urine Mucus NEGATIVE /LPF Urine Culture Indicated NO Micro Results Microbiology 09/17/22 C. difficile GDH Antigen & Toxins - Final, Resulted 09/17/22 Stool Culture, Resulted Pending My Orders Orders - JULIAN PAUL MD Basic Metabolic Panel (09/17/22 08:51) Cbc With Automated Diff (09/17/22 08:51) Magnesium (09/17/22 08:51) Ua Culture If Indicated (09/17/22 08:51) Ed Iv/Invasive Line Start (09/17/22 08:51) Ed Iv/Invasive Line Start (09/17/22 08:51) Lactated Ringers (Lr 1000 Ml Iv Solution (09/17/22 09:00) Ondansetron Injection (Zofran Injectio (09/17/22 09:00) Hyoscyamine Sl Tablet (Levsin Sl Tablet) (09/17/22 09:00) Manual Differential (09/17/22 08:40) Hs C Reactive Protein (09/17/22 09:49) Lipase (09/17/22 09:49) Lactated Ringers (Lr 1000 Ml Iv Solution (09/17/22 10:30) Stool Culture (09/17/22 10:52) C Difficile Ag + Toxin A/B. (09/17/22 10:52) Medications Given in ED Vital Signs/I&O 09/17/22 09/17/22 08:30 12:09 Temp 36.8 Pulse 86 72 Resp 18 18 B/P (MAP) 117/95 (102) 115/80 Pulse Ox 100 100 O2 Delivery Room Air Room Air Blood Pressure Mean: 102 Progress Progress Note #1: Time: 09:00 Progress Note Patient was interviewed and examined. Basic labs are pending. She is being treated with Zofran for nausea. Levsin is being administered for the bowel cramping. LR is infusing for IV hydration. Progress Note #2: Progress Note Patient experienced improvement in symptoms after treatment. She was hydrated with 1 L of LR. Zofran was given for nausea and Levsin was given for cramping. She had trouble producing a urine specimen, and a second liter of LR was ordered for further hydration. CBC was notable for leukocytosis of 21,000. CBC was otherwise unremarkable. BMP was unremarkable. Due to leukocytosis, a CRP was added and was unremarkable. Labs were reviewed in their entirety by me and interpreted by me. Urinalysis was eventually obtained and evaluated. There was no evidence of pyuria. Specific gravity was elevated suggesting hypovolemia. Patient developed grossly bloody stools while in the ER. Her chart from prior visits was reviewed. She had a recent colonoscopy that demonstrated internal and external hemorrhoids. There were no other significant abnormalities identified on the colonoscopy. The most likely scenario in her case is a viral gastroenteritis that has caused bleeding of hemorrhoids due to anticoagulation. I have recommended a clear liquid diet and holding her Eliquis for at least this morning's dose. She may resume Eliquis this evening if bleeding stops. Departure Impression Primary Impression: Nausea vomiting and diarrhea Additional Impressions: Abdominal cramping Hematochezia History of hemorrhoids Anticoagulated Disposition: 01 HOME, SELF-CARE Condition: Improved Departure-Patient Inst. Decision time for Depature: 11:55 Referrals: XIOMARA HERNANDEZ MD (PCP/Family) Primary Care Physician Patient Instructions: Abdominal Pain, Adult ED, Bloody Stools, Adult ED, Viral Gastroenteritis in Adults Add. Discharge Instructions: It is likely your vomiting and diarrhea is caused by a viral gastroenteritis. This may have aggravated hemorrhoids your rectal bleeding in the context of blood thinner use. Skip the morning dose of Eliquis today. If bleeding has resolved this evening, you may resume Eliquis. If you are still having notable bleeding, skip this evening's dose of Eliquis as well. Adhere to a clear liquid diet for the remainder of today. If you are feeling better in the morning and diarrhea has resolved, gradually advance your diet with small quantities of bland food as tolerated. Use Zofran (ondansetron) as prescribed for nausea and vomiting. Use Levsin (hyoscyamine) as prescribed for bowel cramping. You may use Tylenol (aceta minophen) up to 1000 mg every 6 hours as needed for pain. Follow-up with Dr. Hernandez's office by phone tomorrow morning and schedule a follow-up appointment. Stool culture results should be available in 2 to 3 days. Please review these with Dr. Hernandez or her staff. Return to the ER if you have worsening symptoms despite following these instructions. All discharge instructions reviewed with patient and/or family. Voiced understanding. Scripts Ondansetron (Ondansetron Odt) 4 Mg Tab.rapdis 4 MG SL Q4H PRN for NAUSEA/VOMITING, #10 TAB Prov: BRUEGGEMANN,JULIAN T MD 09/17/22 Hyoscyamine Sulfate (Levsin-Sl) 0.125 Mg Tab.subl 1-2 TAB SL Q4H PRN for CRAMPS, #10 TAB 0 Refills May be used for cramps or diarrhea. Prov: JULIAN PAUL MD 09/17/22 Work/School Note: Work Release Form Date Seen in the Emergency Department: Sep 17, 2022 Return to Work: Sep 19, 2022 Restrictions: Return-No Fever (24hrs), Return-No Vomiting(24hrs) Other Restrictions Listed Below: Do not return to work if actively bleeding. Copy Copies To 1: XIOMARA HERNANDEZ MD Copies To 2: CRISTHIAN GONZALEZ MD, JOSHUA T MD Sep 17, 2022 08:53
[2022-09-17 08:57] LABS: BASOPHILS # (AUTO) 0.1 10^3/uL (0.0-0.1); BASOPHILS % (AUTO) 0 % (0-10); EOSINOPHILS # (AUTO) 0.1 10^3/uL (0.0-0.3); EOSINOPHILS % (AUTO) 0 % (0-10); HEMATOCRIT 45 % (35-52); HEMOGLOBIN 15.9 g/dL (11.5-16.0); LYMPHOCYTES # (AUTO) 1.4 10^3/uL (1.0-4.0); LYMPHOCYTES % (AUTO) 7 % (12-44); MEAN CORPUSCULAR HEMOGLOBIN 31 pg (25-34); MEAN CORPUSCULAR HGB CONC 35 g/dL (32-36); MEAN CORPUSCULAR VOLUME 87 fL (80-99); MEAN PLATELET VOLUME 10.8 fL (9.0-12.2); MONOCYTES # (AUTO) 1.1 10^3/uL (0.0-1.0); MONOCYTES % (AUTO) 5 % (0-12); NEUTROPHILS % (AUTO) 87 % (42-75); PLATELET COUNT 273 10^3/uL (130-400); WHITE BLOOD COUNT 21.8 10^3/uL (4.3-11.0)
[2022-09-17] MEDS ORDERED: LACTATED RINGERS 1,000 ML IV ONE ×2 (09:00→10:30)
[2022-09-17] MEDS ORDERED: HYOSCYAMINE 0.125 MG (LEVSIN) TAB SL ONE (09:00)
[2022-09-17] MEDS ORDERED: ONDANSETRON 4 MG/2 ML (SDV) Z0FRAN IVP ONE (09:00)
[2022-09-17 09:07] LABS: POTASSIUM 3.5 MMOL/L (3.6-5.0)
[2022-09-17 09:12] LABS: CREATININE SERUM 1.01 MG/DL (0.60-1.30)
[2022-09-17 09:14] LABS: MAGNESIUM 1.9 MG/DL (1.6-2.4)
[2022-09-17 09:18] LABS: BAND NEUTROPHILS 0 %; BASOPHILS % (MANUAL) 0 %; EOSINOPHILS % (MANUAL) 1 %; LYMPHOCYTES % (MANUAL) 9 %; MONOCYTES % (MANUAL) 2 %; NEUTROPHILS % (MANUAL) 88 %
[2022-09-17 09:19] LABS: RBC MORPH NORMAL
[2022-09-17 10:06] LABS: CLARITY,URINE CLEAR; COLOR,URINE YELLOW; GLUCOSE, URINE (UA) NEGATIVE (NEGATIVE); KETONES,URINE TRACE (NEGATIVE); LEUKOCYTE ESTERASE ,URINE NEGATIVE (NEGATIVE); NITRITE,URINE NEGATIVE (NEGATIVE); PH,URINE 5.5 (5-9); PROTEIN,URINE NEGATIVE (NEGATIVE)
[2022-09-17 10:33] LABS: BACTERIA,URINE NEGATIVE /HPF; BILIRUBIN,URINE 1+ (NEGATIVE); SQUAMOUS EPITHELIAL CELL,UR RARE /HPF
[2022-09-17] MEDS ORDERED: HYOS0.1283 SL (11:59)
[2022-09-17] MEDS ORDERED: ONDA4TAB11 SL (11:59)
[2022-09-17 12:09] VITALS: BP 115/80
== END 2022-09-17 12:09 | disposition home or self-care (01) ==
LOC: EDUNIT# 08:25 → ER 08:27
DX: K92.1 Melena (principal); R11.0 Nausea; E66.9 Obesity, unspecified; Z68.37 Body mass index [BMI] 37.0-37.9, adult; Z87.19 Personal history of other diseases of the digestive system; Z86.711 Personal history of pulmonary embolism; Z79.01 Long term (current) use of anticoagulants; Z28.310 Unvaccinated for COVID-19
CPT/HCPCS: 36415; 80048; 81000; 83690; 83735; 85007; 85027; 86141; 87015; 87045; 87046; 87324; 87449; 87899

== ENCOUNTER → 2022-11-27 | Outpatient (CLI) | payer BC ==
[~2022-11-27] MED LIST changes: +HYOS0.1283 SL; +ONDA4TAB11 SL
--- NOTE | 2022-11-27 14:40 | Diagnostic Imaging Report ---
PROCEDURE: US Non-ob pelvis comp/trans. TECHNIQUE: Multiple Real-time grayscale images were obtained of the pelvis in various projections endovaginally. Transabdominal imaging was also performed. INDICATION: Right lower quadrant pain, R10.31. COMPARISON: 12/28/2020. FINDINGS: The uterus is retroverted. The uterus measures 7.2 x 4.3 x 5.5 cm. The uterus is mildly heterogeneous without discrete focal uterine mass lesion. The endometrium measures 0.3 cm which is not abnormally thickened. The right ovary measures 3.7 x 2.3 x 2.1 cm. Vascular flow is present within the right ovary. A 0.8 cm dominant follicle is identified within the right ovary. The left ovary measures 3.0 x 1.8 x 2.3 cm. It is unremarkable. Vascular flow is noted within the left ovary. No significant free fluid. IMPRESSION: No acute abnormality. Dominant follicle within the right ovary. The uterus is retroverted. Dictated by: Dictated on workstation # [id number]
== END ==
LOC: RAD 14:00
PROVIDERS: ATTEND Obstetrics & Gynecology
DX: N83.01 Follicular cyst of right ovary (principal)
CPT/HCPCS: 76830; 76856

== ENCOUNTER 2022-12-31 09:35 | Emergency (ER) | payer BC ==
[~2022-12-31] VITALS: Ht 162.6 cm; Wt 97.5 kg
--- NOTE | 2022-12-31 09:58 | ED General ---
General Stated Complaint: LOW BP, DIZZINESS, LIGHT HEADED Source of Information: Patient Exam Limitations: No Limitations History of Present Illness Date Seen by Provider: Dec 31, 2022 Time Seen by Provider: 09:50 Initial Comments 47-year-old female presents for dizziness. Symptoms started last night. She checked her blood pressure and it was low so she held her verapamil last night and again this morning. She had similar symptoms when she initially started on verapamil about 7 years ago. She also had 1 bout of peripheral vertigo within the last couple of years but does not typically have a problem with dizziness. She describes her sensation as a room spinning sensation with nausea. No apparent specific head position changes but turning to either side does make her dizziness worse. No recent fevers chills. No blurred or double vision. No head trauma. She has nausea without any vomiting. All other systems reviewed and negative except documented per HPI. Voice recognition software was used to help create this chart Allergies and Home Medications Allergies Coded Allergies: No Known Drug Allergies (Unverified , 01/23/17) Patient Home Medication List Home Medication List Reviewed: Yes Apixaban (Eliquis) 5 Mg Tablet, 5 MG PO BID, (Reported) Entered as Reported by: YESSI SWAIN on 06/20/22 1351 Atorvastatin Calcium (Atorvastatin Calcium) 10 Mg Tablet, 10 MG PO HS, (Reported) Entered as Reported by: TONY MILLER on 01/23/17 1108 Hyoscyamine Sulfate (Levsin-Sl) 0.125 Mg Tab.subl, 1-2 TAB SL Q4H PRN for CRAMPS Prescribed by: JULIAN OENILL on 09/17/22 1159 Metformin HCl (Metformin HCl ER) 500 Mg Tab.er.24h, 500 MG PO BID, (Reported) Entered as Reported by: YESSI SWAIN on 06/20/22 1351 Ondansetron (Ondansetron Odt) 4 Mg Tab.rapdis, 4 MG SL Q4H PRN for NAUSEA/VOMITING Prescribed by: JULIAN ONEILL on 09/17/22 1159 Sertraline HCl (Sertraline HCl) 100 Mg Tablet, 100 MG PO HS, (Reported) Entered as Reported by: YESSI SWAIN on 06/20/22 1351 Spironolactone (Spironolactone) 100 Mg Tablet, 100 MG PO HS, (Reported) Entered as Reported by: YESSI SWAIN on 06/20/22 1351 Verapamil HCl (Verapamil HCl) 120 Mg Tablet, 120 MG PO HS, (Reported) Entered as Reported by: FERNANDO JAVIER on 01/21/17 8568 Review of Systems Review of Systems Constitutional: see HPI Past Gnjbuxz-Gdqixn-Itvucr Hx Patient Social History Tobacco Use?: No Use of E-Cig and/or Vaping dev: No Substance use?: No Alcohol Use?: No Immunizations Up To Date Tetanus Booster (TDap): Unknown PED Vaccines UTD: Yes First/Initial COVID19 Vaccinat: NO Second COVID19 Vaccination Sarabjit: NO Third COVID19 Vaccination Date: NO Seasonal Allergies Seasonal Allergies: Yes (MILD) Past Medical History Surgery/Hospitalization HX: HTN, PARTIAL THYROIDECTOMY. Surgeries: Yes (ABDOMINOPLASTY; X 1;R ELBOW SURGERY x3, uterine ablation) Abdominal, Adenoidectomy, Section, Orthopedic, Thyroidectomy, Tonsillectomy Respiratory: Yes (P.E. 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 Sexually Transmitted Disease: No HIV/AIDS: No Genitourinary: Yes Kidney Stones Gastrointestinal: Yes Polyps, Irritable Bowel Musculoskeletal: Yes (CHRONIC HIP PAIN ) Arthritis Endocrine: Yes (OBESITY, nodular thyroid) Diabetes, Non-Insulin dep HEENT: No Loss of Vision: Denies Hearing Impairment: Denies Cancer: No (possible thyroid ca, bx in apr 2022 ?results going to [facility] 07/03) Psychosocial: Yes Anxiety Integumentary: No Blood Disorders: Yes (DVT'S/PE'S ; PROTEIN C DEFICIENCY) Adverse Reaction/Blood Tranf: No (HAS HAD BLOOD WITH NO REACTION) Physical Exam Vital Signs Vital Signs - First Documented 12/31/22 09:50 Temp 36.5 Pulse 83 Resp 17 B/P (MAP) 118/80 (93) O2 Delivery Room Air Capillary Refill : Height, Weight, BMI Height: 5'4.00" Weight: 240lbs. 0.0oz. 108.788587zy; 37.00 BMI Method:Stated General Appearance: No Apparent Distress Eyes: Bilateral Eye Normal Inspection, Bilateral Eye PERRL, Bilateral Eye EOMI, Bilateral Eye Other (Fatigable nystagmus to the left) HEENT: PERRL/EOMI, TMs Normal, Normal ENT Inspection, Pharynx Normal Neck: Full Range of Motion, Normal Inspection Respiratory: Chest Non Tender, Lungs Clear, Normal Breath Sounds, No Accessory Muscle Use, No Respiratory Distress Cardiovascular: Regular Rate, Rhythm, No Murmur, Normal Peripheral Pulses Gastrointestinal: Normal Bowel Sounds, No Organomegaly, Non Tender, Soft Extremity: Normal Capillary Refill, Normal Inspection, Normal Range of Motion, Non Tender, No Calf Tenderness Neurologic/Psychiatric: Alert, Oriented x3, No Motor/Sensory Deficits, Normal Mood/Affect, patients transporter II-XII Norm as Tested Skin: Normal Color, Warm/Dry Progress/Results/Core Measures Suspected Sepsis SIRS Temperature: Pulse: Respiratory Rate: Laboratory Tests 12/31/22 10:02: White Blood Count 7.8 Blood Pressure / Mean: Laboratory Tests 12/31/22 10:02: Creatinine 0.87, Platelet Count 223 Results/Orders Lab Results Laboratory Tests Test 12/31/22 10:02 Range/Units White Blood Count 7.8 4.3-11.0 10^3/uL Red Blood Count 4.82 3.80-5.11 10^6/uL Hemoglobin 14.7 11.5-16.0 g/dL Hematocrit 43 35-52 % Mean Corpuscular Volume 89 80-99 fL Mean Corpuscular Hemoglobin 31 25-34 pg Mean Corpuscular Hemoglobin Concent 34 32-36 g/dL Red Cell Distribution Width 12.5 10.0-14.5 % Platelet Count 223 130-400 10^3/uL Mean Platelet Volume 10.6 9.0-12.2 fL Immature Granulocyte % (Auto) 0 % Neutrophils (%) (Auto) 65 42-75 % Lymphocytes (%) (Auto) 25 12-44 % Monocytes (%) (Auto) 6 0-12 % Eosinophils (%) (Auto) 3 0-10 % Basophils (%) (Auto) 1 0-10 % Neutrophils # (Auto) 5.1 1.8-7.8 10^3/uL Lymphocytes # (Auto) 1.9 1.0-4.0 10^3/uL Monocytes # (Auto) 0.5 0.0-1.0 10^3/uL Eosinophils # (Auto) 0.2 0.0-0.3 10^3/uL Basophils # (Auto) 0.1 0.0-0.1 10^3/uL Immature Granulocyte # (Auto) 0.0 0.0-0.1 10^3/uL Sodium Level 140 135-145 MMOL/L Potassium Level 3.9 3.6-5.0 MMOL/L Chloride Level 110 H 98-107 MMOL/L Carbon Dioxide Level 19 L 21-32 MMOL/L Anion Gap 11 5-14 MMOL/L Blood Urea Nitrogen 10 7-18 MG/DL Creatinine 0.87 0.60-1.30 MG/DL Estimat Glomerular Filtration Rate 83 BUN/Creatinine Ratio 11 Glucose Level 93 70-105 MG/DL Calcium Level 9.4 8.5-10.1 MG/DL My Orders Orders - ASHLEYBLANCO OUSNA DO Basic Metabolic Panel (12/31/22 09:56) Ct Head Wo (12/31/22 09:56) Orthostatic Vital Signs (Adult (12/31/22 09:56) Ekg Tracing (12/31/22 09:56) Cbc With Automated Diff (12/31/22 09:56) Diazepam Injection (Diazepam Injection (12/31/22 10:00) Ondansetron Injection (Zofran Injectio (12/31/22 10:00) Iv/Invasive Line Insertion .IV INSERT (12/31/22 09:57) Medications Given in ED Current Medications Medications Dose Ordered Sig/John Route Start Time Stop Time Status Last Admin Dose Admin Diazepam 5 mg ONCE ONCE IVP 12/31/22 10:00 12/31/22 10:01 DC 12/31/22 10:12 5 MG Ondansetron HCl 4 mg ONCE ONCE IVP 12/31/22 10:00 12/31/22 10:01 DC 12/31/22 10:12 4 MG Vital Signs/I&O 12/31/22 12/31/22 09:50 10:07 Temp 36.5 Pulse 83 82 87 92 Resp 17 B/P (MAP) 118/80 (93) 109/82 (91) 122/85 (97) 104/74 (84) O2 Delivery Room Air Capillary Refill : Departure Communication (Admissions) Patient is hemodynamically stable with no neurologic deficits. She has fatigable nystagmus to the left but her dizziness certainly happens with any head position changes. She was given IV Valium which did seem to help. I also gave her IV Zofran. CT scan of her head is negative. Chemistries unremarkable including normal electrolytes and renal function. She is not anemic. She be discharged home with p.o. Valium, Zofran and close follow-up. She states understanding and questions were sought and answered. Impression Primary Impression: Vertigo Disposition: HOME, SELF-CARE Condition: Stable Departure-Patient Inst. Referrals: XIOMARA HERNANDEZ MD (PCP/Family) Primary Care Physician Patient Instructions: Vertigo (a Type of Dizziness) (DC) Add. Discharge Instructions: Increase your fluids at home and rest. Do not take your blood pressure medicine if your blood pressure is less than 110 on the top number. I will keep a log of her blood pressures and take this along with your blood pressure cuff to your next appoint with Dr. Hernandez. Take the Valium as needed by mouth for dizziness. This may make you slightly drowsy so do not drive or make important decisions while taking it. You may also use the nausea medicine but dissolve it under your tongue as needed. Follow-up with your primary doctor in the next week or so for further evaluation and treatment recommendations. Scripts Ondansetron (Ondansetron Odt) 8 Mg Tab.rapdis 8 MG SL Q6H PRN for NAUSEA/VOMITING for 5 Days, #20 TAB Prov: BLANCO RAMIREZ DO 12/31/22 Diazepam (Valium) 5 Mg Tablet 5 MG PO TID for Vertigo for 3 Days, #9 TAB Prov: BLANCO RAMIREZ DO 12/31/22 BLANCO RAMIREZ DO Dec 31, 2022 09:58
[2022-12-31] MEDS ORDERED: ONDANSETRON 4 MG/2 ML (SDV) Z0FRAN IVP ONE (10:00)
[2022-12-31] MEDS ORDERED: diazePAM INJ 10 MG/2 ML syringe IVP ONE (10:00)
[2022-12-31 10:07] VITALS: BP_SYST 104; BP_SYST 109; BP_SYST 122; BP_DIAS 74; BP_DIAS 82; BP_DIAS 85
[2022-12-31 10:07] LABS: BASOPHILS # (AUTO) 0.1 10^3/uL (0.0-0.1); BASOPHILS % (AUTO) 1 % (0-10); EOSINOPHILS # (AUTO) 0.2 10^3/uL (0.0-0.3); EOSINOPHILS % (AUTO) 3 % (0-10); HEMATOCRIT 43 % (35-52); HEMOGLOBIN 14.7 g/dL (11.5-16.0); LYMPHOCYTES # (AUTO) 1.9 10^3/uL (1.0-4.0); LYMPHOCYTES % (AUTO) 25 % (12-44); MEAN CORPUSCULAR HEMOGLOBIN 31 pg (25-34); MEAN CORPUSCULAR HGB CONC 34 g/dL (32-36); MEAN CORPUSCULAR VOLUME 89 fL (80-99); MEAN PLATELET VOLUME 10.6 fL (9.0-12.2); MONOCYTES # (AUTO) 0.5 10^3/uL (0.0-1.0); MONOCYTES % (AUTO) 6 % (0-12); NEUTROPHILS # (AUTO) 5.1 10^3/uL (1.8-7.8); NEUTROPHILS % (AUTO) 65 % (42-75); PLATELET COUNT 223 10^3/uL (130-400); WHITE BLOOD COUNT 7.8 10^3/uL (4.3-11.0)
[2022-12-31 10:16] LABS: POTASSIUM 3.9 MMOL/L (3.6-5.0)
[2022-12-31 10:17] LABS: CALCIUM 9.4 MG/DL (8.5-10.1)
[2022-12-31 10:22] LABS: CREATININE SERUM 0.87 MG/DL (0.60-1.30)
--- NOTE | 2022-12-31 10:49 | Diagnostic Imaging Report ---
CLINICAL INDICATION: Patient with vertigo and low blood pressure. EXAM: Axial CT scan of the brain without IV contrast with coronal and sagittal reformatted images. Auto Exposure Controls were utilized during the CT exam to meet ALARA standards for radiation dose reduction. COMPARISON: Head CT without contrast dated 09/11/2015. FINDINGS: There is no evidence of acute cerebral infarct, intracranial hemorrhage, or gross mass effect. The brain parenchymal volume appears appropriate for patient's age. There is normal toussaint-white matter distinction. There is no significant midline shift or herniation. There is no evidence of hydrocephalus. The basal cisterns are unremarkable. Hypertrophic frontalis interna is noted. Otherwise, the skull, extracranial soft tissue, and orbits are unremarkable. The paranasal sinuses are unremarkable. Temporal bones show no significant abnormality. IMPRESSION: There is no CT evidence of acute intracranial process. Dictated by: Dictated on workstation # [id number]
[2022-12-31] MEDS ORDERED: DIAZ5TAB PO (10:51)
[2022-12-31] MEDS ORDERED: ONDA8TAB13 SL (10:51)
[2022-12-31 10:56] VITALS: BP 137/84
== END 2022-12-31 10:56 | disposition home or self-care (01) ==
LOC: EDUNIT# 09:35 → ER 09:37
DX: R42 Dizziness and giddiness (principal); R11.0 Nausea; E66.9 Obesity, unspecified; Z28.310 Unvaccinated for COVID-19; Z68.37 Body mass index [BMI] 37.0-37.9, adult
CPT/HCPCS: 36415; 70450; 80048; 85025; 93005

== ENCOUNTER 2023-03-21 15:52 | Outpatient (RCR) | payer BC ==
[~2023-03-21 15:52] MED LIST changes: +DIAZ5TAB PO; +ONDA8TAB13 SL
== END 2023-03-27 | disposition home or self-care (01) ==
DX: M54.17 Radiculopathy, lumbosacral region (principal)

== ENCOUNTER 2023-04-18 08:54 | Outpatient (RCR) | payer BC | END 2023-04-26 | disposition home or self-care (01) | DX: M54.17 Radiculopathy, lumbosacral region (principal) ==